=== PATIENT | female | born 1970 | race Caucasian/White ===

== ENCOUNTER 2017-11-16 06:02 | Day surgery (SDC) | payer OTHER, SELFPAY ==
[2017-11-05 15:57] LABS: Hemoglobin 12.9 g/dl (12.0-15.0); Mean Corp Hgb Conc 33.1 g/gl (32-36); Mean Corpuscular Hgb 29.9 pg (27.0-32.0); Mean Corpuscular Volume 90.3 fL (81-99); Mean Platelet Vol. 9.6 fl (6.2-12.0); Platelet Count 342 K/mm3 (150-450); RBC Distribution Width CV 12.9 % (11.6-14.6); RBC Distribution Width SD 42.1 fl (35.1-43.9); Red Blood Count 4.32 M/mm3 (4.2-5.4); White Blood Count 9.7 K/mm3 (4.4-11.0)
[2017-11-05 16:00] LABS: Scan Indicated on CBC? Y/N NO
[2017-11-05 16:43] LABS: International Normalized Ratio 0.9; Prothrombin Time (Protime)PT. 11.8 SECONDS (11.7-14.9)
[2017-11-05 16:44] LABS: Partial Thromboplast Time 28.7 Seconds (24.1-36.2)
--- NOTE | 2017-11-15 12:35 | PCM.HP.BLA ---
History and Physical Date of Admission: 11/16/17 Surgical History and Physical Lali Holloway, a 47 year old female 2 0 0 0 2, presents for Hysteroscopy, dilation and curettage on November 16, 2017 at 10:00. -- Irregular Heavy Menses after Endometrial Ablation -- Patient states that she has been having incereased bleeding over the past several months. Patient states that she has had 3 menses since July. Patient states that she is newly dx diabetic over the past year as well she is able to control with Diet and use of Metformin. She has had 3 periods since July last up to 1 week each with heavy flow and only 2 weeks between each. Declines more definitive treatment at this time such as a hysterectomy. MEDICATIONS HISTORY: Patient is also takin. Multiple Vitamin, Womens tablet, One pill by mouth once a day 2. Inderal LA 120 mg capsule,extended release 24 hr, 1 Tab po daily 3. Cymbalta 30 mg capsule,delayed release, One pill by mouth once a day 4. metformin 1,000 mg tablet, 1 PO BID ALLERGIES: Penicillin, Demerol, N,hallucinations, Codeine, Hallucinations, Codeine, Hallucinations, Demerol, Hallucinations, Penicillins and Severe nausea & vomiting Infections - Chicken pox Illnesses - ?collitis, 2009, migraines and joint pain Accidents - no injuries of consequence Hospitalizations - Childbirth and see surgery colonoscopy 05-24-08 for rectal bleeding; Review of Systems: GENERAL - Denies fever, or chills SKIN - Denies skin changes EYES - Denies visual changes EARS - Denies difficulty hearing NOSE - Denies nasal congestion or bleeding MOUTH - Denies sore throat or difficulty swallowing NECK - Denies pain or swelling RESPIRATORY - Denies shortness of breath or wheezing CARDIOVASCULAR - Denies palpitations or chest pain GASTROINTESTINAL - Denies nausea, vomiting, diarrhea, constipation GENITOURINARY - Denies dysuria, frequency of urination, incontinence of urine MUSCULOSKELETAL - Denies joint or muscle pain NEUROLOGICAL - Denies localized numbness or weakness PSYCHIATRIC - Denies depression or anxiety ENDOCRINE - Denies heat or cold intolerance, weight loss or gain HEMATO-IMMUNOLOGIC - Denies excesive bleeding with cuts SOCIAL HISTORY: Alcohol Use - denies drinking Smoking - denies smoking Diet - low carb low sugar Lifestyle - moderate stress lifestyle and Exercise - minimal Seat Belt Use - always 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 Maternal Grandmother: Heart Disease. Paternal Grandmother: Breast cancer. MENSTRUAL HISTORY: LMP Known?- ApproximateAmount/Duration - 5 days, Regularity - irregular, Frequency - monthly days, LMP - 10/19/17, Age Onset Menarche - 13 PAST PREGNANCIES: Total Pregnancies - 2; Full Term Pregnancies - 2; Premature - 0; Abortions, Induced - 0; Abortions, Spontaneous - 0; Ectopics - 0; Multiple Births - 0; Living Children - 2 SURGICAL HISTORY: 1. knee,rebrake femur w/graft (blood tx), femur pin, appy ; - 2. 07/04/2005 Moles removed ; Dr Gottlieb - 3. 04/04/2005 cholecystectomy ; Rogelio Gardiner - 4. 03/26/2000 Appendectomy ; Rogelio Gardiner - 5. Melanoma removed from back 02/01 ; - 6. 01/24/2004 2 moles removed ; Dr Gottlieb - 7. 08/06/2003 HTA, TUBAL ; Trever Cheatham M.D. - 8. 05/24/2008 colonoscopy for rectal bleeding ; Rogelio Gardiner - 9. Multiple Breast Biopsies x 3 months ; - 10. 02/08/2013 TVTO ; Trever Cheatham M.D. - PHYSICAL EXAM BP- 122/74 Sitting, Right arm, regular cuff Weight- 198.94501 lbs Height- 68 inch BMI:30.17 CONSTITUTIONAL - NAD, well nourished, and well developed SKIN - No rash, lesions, or ulcers HEENT - Normocephalic, PERRLA, EOMI NECK - No nodes, no nuchal rigidity and thyroid normal size and texture LYMPH NODES - Palpation of lymph nodes in neck and groins within normal limits LUNGS - CTA x2 without wheezes, crackles or rales CARDIAC - Regular rate and rhythm without rubs, murmurs, or gallops BREAST - No dominant masses, no tenderness, no axillary adenopathy, no nipple discharge, no skin changes ABDOMEN - Without hepatosplenomegaly, distention, masses, rebound, or guarding; normal bowel sounds; no hernias EXTREMITIES - No edema or calf tenderness NEUROLOGICAL - normal gait, normal balance, normal motor PSYCHIATRIC - A and O to time, place, person, mood and affect PAP SMEAR - Deferred External Genitial Vagina - non-tender without lesions Urethra/Urethral Meatus - non-tender Bladder - non-tender Vagina - vaginal walter are pink and moist without loss of rugae and no evidence of atropy Cervix - without cervical motion tenderness and has normal size and features without evident lesions Uterus - 5-6 cm in size, mobile and nontender Adnexa - clear without massess or tenderness ASSESSMENT/PLAN: Excessive And Frequent Menstruation With Irregular Cycle h/o endometrial ablation Reviewed need to r/o endometrial hyperplasia vs. malignancy, dfdx perimenopausal bleeding Recommend endometrial sampling - office bx attempted not successful Plan for hysteroscopy, dilation and curettage in OR - risks, benefits, postop course reviewed.
--- NOTE | 2017-11-16 | EMB_PTH ---
PATIENT: KULWANT GOMEZ LOC: [facility] [place] U#:[id number] AGE/SX: 47/F ROOM: RE11/16/[address]: Dr. Trever Cheatham MD : 1970 BED: DIS: 11/16/2017 SPEC #: [id number] RECD: 11/16/17 10:02 STATUS: NAVEED KASIA #: [id number] NICK: 11/16/17 00:[address]: Trever Cheatham DEPT: SURGICAL PATHOLOGY RECD BY: Luis M Tabares ENTERED: 11/16/17 10:02 SP TYPE: ENDOM BX/C FREYA DR: Dr. Nancy Pérez MD Tissues: Endometrium, NOS Procedures: Surgery Specimen Level IV HEADER OPERATION: Hysteroscopy, dilation and curettage PRE-OP DIAGNOSIS: Excessive and frequent menstruation TISSUE SUBMITTED: Endometrial curettings MICROSCOPIC DIAGNOSIS Endometrial curettings: Late secretory endometrium. Fragments of benign endocervical mucosa with chronic inflammation. SJ:nicole 11/17/17 MICROSCOPIC DESCRIPTION Slides are reviewed. GROSS DESCRIPTION Received in fixative is one container labeled with the patient's name and designated endometrial curettings. The specimen consists of multiple fragments of hemorrhagic soft tissue mixed with blood clot that in aggregate measure 7.5 x 3 x 0.3 cm. The entire specimen is submitted in three cassettes. / OPAL:nicole 11/16/17 TC:4 CPT: 18917
[2017-11-16 06:30] LABS: Internal QC Validated? YES +Cl - CLEAR BKGD; Pregnancy, Urine Negative Negative
[2017-11-16 06:45] VITALS: BP 113/67; PULSE 68; RESP 16; TEMP 36.4; O2SAT 98; BMI 29.9
[2017-11-16 06:56] LABS: Bedside Glucose 142 mg/dL (70-110)
--- NOTE | 2017-11-16 07:30 | OP.PCM_ITS ---
Operative Report Date of Procedure: 11/16/17 Surgeon: Trever Cheatham MD, FACOG Anesthesia: Quoc Cano CRNA Type of Anesthesia: General Endotracheal Pre-Op Diagnosis: Menorrhagia Status Post Endometrial Ablation Postoperative diagnosis: Menorrhagia Status Post Endometrial Ablation; Submucous Fibroids Procedure: Diagnostic Hysteroscopy, Dilation and Curettage Findings: 8 cm endometrial cavity with no polyps visualized. [place] endometrium. Submucous fibroid noted near the fundus of the uterus with the endometrial curette. Cervix which protruded to within 2 cm of the introitus which would make laparoscopic-assisted vaginal hysterectomy technically feasible. Indications: This is a 47 year old patient who has the above diagnosis. The patient has been counseled regarding the risk and indications of this procedure including the possibility of bleeding, infection, and injury to surrounding structures such as bowel bladder. All questions were answered to reconsider the patient well-informed. Procedure: The patient was taken to the operating room where after induction of general anesthesia, she was placed in the dorsolithotomy position and prepped and draped in the usual sterile fashion. The bladder was drained of approximately 50 cc of clear yellow urine with a catheter. Anterior cervix was grasped with the tenaculum and dilated to about 4-5 mm. A 3 mm hysteroscope was placed in the uterus of the above findings were noted. Cervix was dilated to about 7-8 mm and uterus was gently curetted removing all contents. Hysteroscope was reinserted and all material was noted to be removed. In the course of the procedure approximately 100 cc of saline distending media was used and virtually all of this was recovered. Patient tolerated procedure well was taken to recovery room in satisfactory condition sponge instrument and needle counts were all reportedly correct. Estimated blood loss for the case was minimal. Specimens to pathology was endometrial curettings
--- NOTE | 2017-11-16 07:31 | DCINST_ITS ---
Discharge Diet: No Restrictions Discharge Activity: Return to Normal Activity, May Shower, May Take a Tub Bath Call your doctor if you observe: Fever of 101 or Higher, Inability to urinate, Inability to have a bowel movement, Using more than one pad per hour Allergies/Adverse Reactions: Allergies codeine Allergy (Verified 11/02/17 15:38) Other HALLUCINATIONS meperidine [From Demerol] Allergy (Verified 11/02/17 15:38) Other HALLUCINATIONS Penicillins [PCN] Allergy (Verified 11/02/17 15:38) Hives Medications to take at Discharge Complete Menopause Support Com 1 tab PO BID 11/02/17 Duloxetine HCl 20 mg PO DAILY 11/02/17 Metformin HCl [Metformin HCl ER] 1,000 mg PO BID 11/02/17 Propranolol HCl [Propranolol HCl ER] 80 mg PO DAILY 11/02/17 Primary Care Physician: Nancy Pérez MD [Primary Care Provider] - Test Results: Test results from this visit will be discussed in further detail at your follow- up appointment, if applicable. Please Follow Up With: Trever Cheatham MD When: 2-3 weeks
[2017-11-16 08:03] VITALS: BP 113/67; BP 119/64; PULSE 77; RESP 14; TEMP 37.4; O2SAT 93
[2017-11-16 08:15] VITALS: BP 101/66; BP 113/67; PULSE 81; RESP 14; O2SAT 94
[2017-11-16 08:30] VITALS: BP 106/70; BP 113/67; PULSE 74; RESP 16; O2SAT 95
[2017-11-16 08:43] VITALS: BP 104/61; BP 113/67; PULSE 68; RESP 18; TEMP 37; O2SAT 99
[2017-11-16 08:50] LABS: Bedside Glucose 120 mg/dL (70-110)
[2017-11-16 09:07] VITALS: BP 113/67
== END 2017-11-16 09:08 | disposition home or self-care (01) ==
LOC: SDC 06:06 → AC 06:06
PROVIDERS: Visit Provider Obstetrics & Gynecology
PROC: 0UDB8ZZ Extraction of Endometrium, Via Natural or Artificial Opening Endoscopic (ICD-10-PCS; CPT 58558; principal; 2017-11-16 07:20)
DX: N92.0 Excessive and frequent menstruation with regular cycle (principal); D25.0 Submucous leiomyoma of uterus; Z85.820 Personal history of malignant melanoma of skin
CPT/HCPCS: 00952; 58558; 36415; 81025; 82962; 85027; 85610; 85730; 86850; 86900; 88305; J7120

== ENCOUNTER 2018-06-28 07:35 | Day surgery (SDC) | payer OTHER, SELFPAY ==
--- NOTE | 2018-06-20 12:14 | PCM.HP.BLA ---
History and Physical Date of Admission: 06/28/18 Surgical History and Physical Lali Holloway, a 48 year old female 2 0 0 0 2, presents for LAVH/BSO on June 28, 2018 at 10:15. -- Menorrhagia, Submucous Fibroids, Prior HTA -- Started 1 year ago with this Irregular Bleeding and she is tired of it. 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 D and C last and Ablation in 2003. Bleeding Continues which began 1 year. Lali claims it started gradually and has been present Bleeding q 2-3 weeks. It occurs all the time. It is located in the vagina. It is located in the lower abdomen. Lali characterizes the quality dark brownish colored discharge, cramping. Severity is moderate and very concerned; Additional comments are: Wants Hysterectomy.; Additional comments are: known submucous fiboids. MEDICATIONS HISTORY: Current medications prescribed by our practice are: 1. Prometrium 200 mg capsule, One pill by mouth once a day at hs for 10 days monthly to start cycle Patient is also takin. Multiple Vitamin, Womens tablet, One pill by mouth once a day 2. Inderal LA 120 mg capsule,extended release 24 hr, 1 Tab po daily 3. Cymbalta 30 mg capsule,delayed release, One pill by mouth once a day 4. metformin 1,000 mg tablet, 1 PO BID ALLERGIES: Penicillin, Demerol, N,hallucinations, Codeine, Hallucinations, Codeine, Hallucinations, Demerol, Hallucinations, Penicillins and Severe nausea & vomiting Infections - Chicken pox Illnesses - ?collitis, 2009, migraines and joint pain Accidents - no injuries of consequence Hospitalizations - Childbirth and see surgery colonoscopy 05-24-08 for rectal bleeding; Review of Systems: GENERAL - Denies fever, or chills SKIN - Denies skin changes EYES - Denies visual changes EARS - Denies difficulty hearing NOSE - Denies nasal congestion or bleeding MOUTH - Denies sore throat or difficulty swallowing NECK - Denies pain or swelling RESPIRATORY - Denies shortness of breath or wheezing CARDIOVASCULAR - Denies palpitations or chest pain GASTROINTESTINAL - Denies nausea, vomiting, diarrhea, constipation GENITOURINARY - Denies dysuria, frequency of urination, incontinence of urine MUSCULOSKELETAL - Denies joint or muscle pain NEUROLOGICAL - Denies localized numbness or weakness PSYCHIATRIC - Denies depression or anxiety ENDOCRINE - Denies heat or cold intolerance, weight loss or gain HEMATO-IMMUNOLOGIC - Denies excessive bleeding with cuts SOCIAL HISTORY: Alcohol Use - denies drinking Smoking - denies smoking Diet - low carb low sugar Lifestyle - moderate stress lifestyle and Exercise - minimal Seat Belt Use - always 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 Maternal Grandmother: Heart Disease. Paternal Grandmother: Breast cancer. MENSTRUAL HISTORY: LMP Known?- Suction D and [place]/Duration - 6 days, Regularity - irregular, Frequency - monthly days, LMP - 04/27/18, Age Onset Menarche - 13 PAST PREGNANCIES: Total Pregnancies - 2; Full Term Pregnancies - 2; Premature - 0; Abortions, Induced - 0; Abortions, Spontaneous - 0; Ectopics - 0; Multiple Births - 0; Living Children - 2 SURGICAL HISTORY: 1. knee,rebroke femur w/graft (blood tx), femur pin, appy ; - 2. 07/04/2005 Moles removed ; Dr Gottlieb - 3. 04/04/2005 cholecystectomy ; Rogelio Gardiner - 4. 03/26/2000 Appendectomy ; Rogelio Gardiner - 5. Melanoma removed from back 02/01 ; - 6. 01/24/2004 2 moles removed ; Dr Gottlieb - 7. 08/06/2003 HTA, TUBAL ; Trever Cheatham M.D. - 8. 11/16/2017 hysteroscopy, D and C ; Trever Cheatham M.D. - 9. 05/24/2008 colonoscopy for rectal bleeding ; Rogelio Gardiner - 10. Multiple Breast Biopsies x 3 months ; - 11. 02/08/2013 TVTO ; Trever Cheatham M.D. - PHYSICAL EXAM BP- 114/76 Sitting, Right arm, regular cuff Weight- 201.43468 lbs Height- 68 inch BMI:30.63 CONSTITUTIONAL - NAD, well nourished, and well developed SKIN - No rash, lesions, or ulcers HEENT - Normocephalic, PERRLA, EOMI NECK - No nodes, no nuchal rigidity and thyroid normal size and texture LYMPH NODES - Palpation of lymph nodes in neck and groins within normal limits LUNGS - CTA x2 without wheezes, crackles or rales CARDIAC - Regular rate and rhythm without rubs, murmurs, or gallops BREAST - No dominant masses, no tenderness, no axillary adenopathy, no nipple discharge, no skin changes ABDOMEN - Without hepatosplenomegaly, distention, masses, rebound, or guarding; normal bowel sounds; no hernias EXTREMITIES - No edema or calf tenderness NEUROLOGICAL - normal gait, normal balance, normal motor PSYCHIATRIC - A and O to time, place, person, mood and affect PAP SMEAR - Deferred External Genital Vagina - non-tender without lesions Urethra/Urethral Meatus - non-tender Bladder - non-tender Vagina - vaginal walter are pink and moist without loss of rugae and no evidence of atropy Cervix - without cervical motion tenderness and has normal size and features without evident lesions Uterus - 5-6 cm in size, mobile and nontender Adnexa - clear without masses or tenderness ASSESSMENT/PLAN: 1. Excessive And Frequent Menstruation With Irregular Cycle and Submucous Leiomyoma Of Uterus Still bleeding heavily despite prior HTA, D and C, Progesterone withdrawal therapy. Desires to proceed with hysterectomy. Plan LAVH/BSO. Discussed RBAs and all questions answered.
[2018-06-23 16:49] LABS: Hematocrit 37.9 % (37-47); Hemoglobin 12.5 g/dl (12.0-15.0); Mean Corpuscular Hgb 29.5 pg (27.0-32.0); Mean Corpuscular Volume 89.4 fL (81-99); Mean Platelet Vol. 10.1 fl (6.2-12.0); Platelet Count 296 K/mm3 (150-450); RBC Distribution Width SD 41.8 fl (35.1-43.9); Red Blood Count 4.24 M/mm3 (4.2-5.4); White Blood Count 10.6 K/mm3 (4.4-11.0)
[2018-06-23 16:51] LABS: Scan Indicated on CBC? Y/N NO
[2018-06-23 16:53] LABS: Prothrombin Time (Protime)PT. 13.2 SECONDS (11.7-14.9)
[2018-06-23 16:54] LABS: Creatinine, Serum 0.72 mg/dL (0.55-1.02); EST Glomerular Filtration Rate 92 mL/min (>60); Est Glom Filt Rate - Afr Amer 111 mL/min (>60)
[2018-06-28] VITALS (13 sets, daily range): BP systolic 104–123; BP diastolic 50–82; PULSE 62–101; RESP 16–18; TEMP 36.5–37.1; O2SAT 92–100; BMI 30.9
[2018-06-28 08:26] LABS: Bedside Glucose 151 mg/dL (70-110)
--- NOTE | 2018-06-28 09:30 | HYST_PTH ---
PATIENT: KULWANT GOMEZ LOC: [facility] [place] U#:[id number] AGE/SX: 48/F ROOM: RE06/28/[address]: Dr. Trever Cheatham MD : 1970 BED: DIS: 06/29/2018 SPEC #: [id number] RECD: 06/28/18 13:11 STATUS: NAVEED KASIA #: [id number] NICK: 06/28/18 09:[address]: Trever Cheatham DEPT: SURGICAL PATHOLOGY RECD BY: Mario Berman ENTERED: 06/28/18 13:27 SP TYPE: HYSTERECT OTHR DR: Dr. Nancy Pérez MD Tissues: Uterus, NOS Procedures: Surgery Specimen Level V HEADER OPERATION: Hysterectomy, lap assisted vaginal, BSO PRE-OP DIAGNOSIS: Excessive and frequent menstruation with irregular cycle and submucous leiomyoma of uterus TISSUE SUBMITTED: Uterus, bilateral fallopian tubes and ovaries MICROSCOPIC DIAGNOSIS Uterus, bilateral fallopian tubes and ovaries, vaginal hysterectomy and bilateral salpingo-oophorectomy: Cervix - chronic cystic cervicitis. Endometrium - early secretory endometrium. Myometrium - two intramural leiomyomas (0.3 and 0.5 cm in greatest dimension). - Focal adenomyosis. Bilateral fallopian tubes - no pathologic diagnosis. Right ovary - physiologic follicular and corpus luteum cysts. Left ovary - physiologic follicular cysts. SJ:nicole 06/29/18 COMMENT Please make reference to previous specimen ([id number]) endometrial curettings with diagnosis of late secretory endometrium. MICROSCOPIC DESCRIPTION Slides are reviewed. GROSS DESCRIPTION Received in fixative is one container labeled with the patient's name and designated uterus, bilateral fallopian tubes and ovaries. The specimen consists of a hysterectomy specimen consisting of uterus with cervix and attached right ovary and detached right fallopian tube and detached left fallopian tube and left ovary. The uterus with cervix weighs 143 gm and measures 11 x 6 x 4.5 cm. The serosal surface is gomez, glistening. The ectocervical mucosa is unremarkable. The external os is oval and patulous in contour. The endocervical canal measures 3 cm in length and the endocervical mucosa is unremarkable. The endometrial cavity is narrow and measures 5 cm in length and 0.5 cm in width. The endometrium measures <0.1 cm in thickness. No mass lesion is identified. Serial sectioning of the uterine wall reveal two nodular masses measuring 0.3 and 0.5 cm in greatest dimension. The uninvolved uterine wall measures up to 3 cm in thickness. The detached right fallopian tube measures 4.5 cm in length and 0.5 cm in diameter. The fimbrial end is identified. It is partially disrupted. The attached right ovary measures 3 x 2.5 x 1.5 cm. Sections reveal a corpus luteum measuring 1.5 cm in greatest dimension. A few small cysts are also noted measuring 0.2 to 0.3 cm in greatest dimension filled with clear fluid. The left fallopian tube measures 8 cm in length and 0.5 cm in diameter. The fimbrial end is identified. A Filshie clip is also noted in the center and appears intact. No tubo-ovarian adhesions are noted. Sections reveal unremarkable cut surfaces. The adjacent left ovary measures 2.5 x 2 x 2 cm. Sections reveal multiple cysts filled with clear fluid. The largest cyst measures 0.5 cm in greatest dimension. Management Analyst sections are submitted in 11 cassettes as follows: 1 - anterior cervix, 2 - posterior cervix, 3 & 4 - anterior uterine wall, 5 & 6 - posterior uterine wall, 7 - nodular masses, 8 - right fallopian tube and ovary, 9 - right ovary, 10 - left fallopian tube, 11 - left ovary. / SJ:nicole 06/28/18 TC:5 CPT: 07105
[2018-06-28] MEDS: Ropivacaine 0.5% 30 ML Vial (11:49)
--- NOTE | 2018-06-28 12:00 | PCM.OPRPT ---
Report of Operation Date of Procedure: 06/28/18 Pre-Operative Diagnosis: Menorrhagia and Submucous Fibroids Post-Operative Diagnosis: Menorrhagia and Submucous Fibroids Surgery/Procedure Performed:: Laparoscopic Assisted Vaginal Hysterectomy and Bilateral Salpingo-Oophorectomy Description of Surgical Findings:: 10 cm uterus with normal-appearing fallopian tubes and ovaries. Some adhesions of the left fallopian tube to left pelvic sidewall. water quality specialist: Souleymane Hughes water quality specialist: Niya Kemp Type of Anesthesia:: General - Endotracheal Anesthesiologist: Loli Torres Specimen's removed: Uterus, bilateral fallopian tubes and ovaries Drains: Grossman to straight drain Estimated Blood Loss (mL): 450 cc Fluids Replaced: Crystalloid Description of Procedure: Surgeon: Trever Cheatham MD, FACOG Indications: This is a 48-year-old who is been having problems with extremely heavy bleeding and was noted in ultrasound to have submucous fibroids. Conservative measures have not been helpful. Given this the patient desires that we proceed the above procedure. She has been counseled regarding the risk and indications of this procedure including the possibility of bleeding, infection, and injury to surrounding structures such as bowel bladder. She also understands that if both ovaries are removed that it may be necessary to use hormone replacement therapy for an indefinite period of time. All questions were answered. Procedure: Patient was taken to the operating room where after induction of general anesthesia she was placed in the dorsal lithotomy position and prepped and draped in the usual sterile fashion. A Grossman catheter was placed. Anterior cervix was grasped with a tenaculum and anterior cervix circumscribed with cautery on a setting of 35 W coagulation. Anterior vaginal mucosa was undermined and a 4 x 4 raytec sponge was placed to identify the peritoneal reflection of the bladder intraperitoneally. Conn cannula was placed and attention was turned towards the laparoscopic portion of the procedure. Approximately 20 cc of half percent ropivacaine was injected subumbilically, suprapubically, and midway between. A 5 mm bladeless trocar was introduced subumbilically and intraperitoneal placement confirmed. CO2 insufflation was completed and, under direct visualization, a 5 mm bladeless trocar was introduced suprapubically. A 5 mm bladeless trocar was introduced midway between these 2 ports. Enseal was used to cauterize the infundibulopelvic ligaments to the level of the round ligament and the Raytec placed in the vagina was visualized. Scissors was used to open the peritoneum and under direct visualization a narrow Keith was placed vaginally; CO2 gas was stopped and attention turned toward the vaginal hysterectomy portion of the procedure. The posterior aspect of the cervix was circumscribed with a knife and posterior peritoneum easily entered. Progressive bites were taken on either side of the uterine cervix and each pedicle ligated with 0 Vicryl suture. Superior pedicles were ligated ?2 with 0 Vicryl suture and sidewall pedicles were examined and oversewn where necessary with [id number] 0 Vicryl suture to achieve hemostasis. Posterior vaginal cuff was oversewn with running locked 0 Vicryl suture. Hemostasis was noted and peritoneum was closed in a pursestring fashion incorporating superior pedicles into the stitch. Vaginal cuff was then closed front to back with interrupted [id number] 0 Vicryl suture. Hemostasis was noted. Attention was turned toward the laparoscopic portion of the procedure. CO2 insufflation was completed and pedicles were examined with the laparoscope and noted to be hemostatic. Right ureter was noted to peristalse. Laparoscopic instruments with as much CO2 gas as possible was removed and skin incisions were closed with interrupted 4-0 Monocryl suture. Steri-Strips were placed across the incisions. Patient tolerated the procedure well was taken to recovery room in satisfactory condition; sponge instrument and needle counts were all reportedly correct. Estimated blood loss for the case was 450 cc. Cefotan 2 g IV was given prior to beginning the operative procedure. There were no apparent complications of the surgery. Specimen to pathology was uterus and bilateral fallopian tubes and ovaries. Grafts/Implants Used: None - Complications None - Admit VTE Documentation VTE Present on Admission: Yes VTE Mechan Device Prophylaxis: [facility] VTE Pharm Prophylaxis ordered?: Yes
--- NOTE | 2018-06-28 12:06 | OP.PCM_ITS ---
Report of Operation Date of Procedure: 06/28/18 Pre-Operative Diagnosis: Menorrhagia and Submucous Fibroids Post-Operative Diagnosis: Menorrhagia and Submucous Fibroids Surgery/Procedure Performed:: Laparoscopic Assisted Vaginal Hysterectomy and Bilateral Salpingo-Oophorectomy Description of Surgical Findings:: 10 cm uterus with normal-appearing fallopian tubes and ovaries. Some adhesions of the left fallopian tube to left pelvic sidewall. head stock operator: Souleymane Hughes head stock operator: Niya Kemp Type of Anesthesia:: General - Endotracheal Anesthesiologist: Loli Torres Specimen's removed: Uterus, bilateral fallopian tubes and ovaries Drains: Grossman to straight drain Estimated Blood Loss (mL): 450 cc Fluids Replaced: Crystalloid Description of Procedure: Surgeon: Trever Cheatham MD, FACOG Indications: This is a 48-year-old who is been having problems with extremely heavy bleeding and was noted in ultrasound to have submucous fibroids. Conservative measures have not been helpful. Given this the patient desires that we proceed the above procedure. She has been counseled regarding the risk and indications of this procedure including the possibility of bleeding, infection, and injury to surrounding structures such as bowel bladder. She also understands that if both ovaries are removed that it may be necessary to use hormone replacement therapy for an indefinite period of time. All questions we re answered. Procedure: Patient was taken to the operating room where after induction of general anesthesia she was placed in the dorsal lithotomy position and prepped and draped in the usual sterile fashion. A Grossman catheter was placed. Anterior cervix was grasped with a tenaculum and anterior cervix circumscribed with cautery on a setting of 35 W coagulation. Anterior vaginal mucosa was unde rmined and a 4 x 4 raytec sponge was placed to identify the peritoneal reflection of the bladder intraperitoneally. Conn cannula was placed and attention was turned towards the laparoscopic portion of the procedure. Approximately 20 cc of half percent ropivacaine was injected subumbilically, suprapubically, and midway between. A 5 mm bladeless trocar was introduced subumbilically and intraperitoneal placement confirmed. CO2 insufflation was completed and, under direct visualization, a 5 mm bladeless trocar was introduced suprapubically. A 5 mm bladeless trocar was introduced midway betwe en these 2 ports. Enseal was used to cauterize the infundibulopelvic ligaments to the level of the round ligament and the Raytec placed in the vagina was visualized. Scissors was used to open the peritoneum and under direct visualization a narrow Keith was placed vaginally; CO2 gas was stopped and attention turned toward the vaginal hysterectomy portion of the procedure. The posterior aspect of the cervix was circumscribed with a knife and posterior peritoneum easily entered. Progressive bites were taken on either side of the uterine cervix and each pedicle ligated with 0 Vicryl suture. Superior pedicles were ligated ?2 with 0 Vicryl suture and sidewall pedicles were examined and oversewn where necessary with [id number] 0 Vicryl suture to achieve hemostasis. Posterior vaginal cuff was oversewn with running locked 0 Vicryl suture. Hemostasis was noted and peritoneum was closed in a pursestring fashion incorporating superior pedicles into the stitch. Vaginal cuff was then closed front to back with interrupted [id number] 0 Vicryl suture. Hemostasis was noted. Attention was turned toward the laparoscopic portion of the procedure. CO2 insufflation was completed and pedicles were examined with the laparoscope and noted to be hemostatic. Right ureter was noted to peristalse. Laparoscopic instruments with as much CO2 gas as possible was removed and skin incisions were closed with interrupted 4-0 Monocryl suture. Steri-Strips were placed across the incisions. Patient tolerated the procedure well was taken to recovery room in satisfactory condition; sponge instrument and needle counts were all reportedly correct. Estimated blood loss for the case was 450 cc. Cefotan 2 g IV was given prior to beginning the operative procedure. There were no apparent complications of the surgery. Specimen to pathology was uterus and bilateral fallopian tubes and ovaries. Grafts/Implants Used: None - Complications None - Admit VTE Documentation VTE Present on Admission: Yes VTE Mechan Device Prophylaxis: SCD's VTE Pharm Prophylaxis ordered?: Yes
--- NOTE | 2018-06-28 12:09 | DCINST_ITS ---
Discharge Diet: No Restrictions Discharge Activity: Return to Normal Activity, May Not Drive - while taking narcotic pain medications., May Shower, May Take a Tub Bath May resume sexual activity in: 6-8 weeks Call your doctor if your incision/area has: Continuous Slow Oozing, Sudden Inc reased Bleeding, Increased Pain/ Swelling, Increased Redness, Foul Smelling Discharge Call your doctor if you observe: Fever of 101 or Higher, Inability to urinate, Inability to have a bowel movement, Using more than one pad per hour Allergies/Adverse Reactions: Allergies codeine Allergy (Verified 06/28/18 08:03) Other HALLUCINATIONS meperidine [From Demerol] Allergy (Verified 06/28/18 08:03) Other HALLUCINATIONS Penicillins [PCN] Allergy (Verified 06/28/18 08:03) Hives Medications to take at Discharge Duloxetine HCl 20 mg PO QHS 11/02/17 Metformin HCl [Metformin HCl ER] 1,000 mg PO BID 11/02/17 Propranolol HCl [Propranolol HCl ER] 80 mg PO QHS 11/02/17 Atorvastatin Calcium [Lipitor] 10 mg PO QHS 06/21/18 Docusate Sodium [Colace] 100 mg PO BID PRN PRN #60 cap 06/28/18 Estradiol [Estrace] 1 mg PO DAILY #100 tab 06/28/18 Oxycodone [Oxyir] 5 mg PO Q6H PRN PRN 7 Days #20 tab 06/28/18 The following prescriptions were given: Oxycodone [Oxyir] 5 mg PO Q6H PRN PRN 7 Days #20 tab PRN Reason: Severe Pain (6-12/02) Docusate Sodium [Colace] 100 mg PO BID PRN PRN #60 cap PRN Reason: Constipation Estradiol [Estrace] 1 mg PO DAILY #100 tab Orders to be completed after discharge: Basic Metabolic Profile (BMP) Time Frame: 06/21/18, Location: Laboratory Primary Care Physician: Nancy Pérez MD [Primary Care Provider] - Test Results: Test results from this visit will be discussed in further detail at your follow- up appointment, if applicable. Please Follow Up With: Trever Cheatham MD When: 2 to 3 weeks
[2018-06-28 12:20] LABS: Bedside Glucose 152 mg/dL (70-110)
[2018-06-28] MEDS: oxyCODONE 5 MG Tablet PO ×2 (13:11→20:47)
[2018-06-28] MEDS: HYDROmorphone 1 MG/ML Syringe 0.5 MG IV (14:25)
[2018-06-28] MEDS: Lactated Ringers 1,000 ML 150 ML IV ×2 (14:30→20:48)
[2018-06-28] MEDS: Ketorolac 30 MG/ML Syringe IV ×2 (18:09→23:10)
[2018-06-28] MEDS: Enoxaparin 30 MG/0.3 ML Syringe SC (18:19)
[2018-06-28] MEDS: DULoxetine Hcl 20 MG Capsule PO (21:19)
[2018-06-28] MEDS: Atorvastatin Calcium 10 MG Tablet PO (21:19)
[2018-06-28] MEDS: Propranolol LA 80 MG Capsule PO (21:19)
[2018-06-28 21:21] LABS: Bedside Glucose 170 mg/dL (70-110)
[2018-06-29] MEDS: oxyCODONE 5 MG Tablet PO ×2 (03:07→09:06)
[2018-06-29 03:13] VITALS: BP 101/58; PULSE 84; RESP 17; TEMP 36.4; O2SAT 95
[2018-06-29] MEDS: Ketorolac 30 MG/ML Syringe IV (05:01)
[2018-06-29 05:27] LABS: Hematocrit 31.7 % (37-47); Hemoglobin 10.3 g/dl (12.0-15.0); Mean Corp Hgb Conc 32.5 g/gl (32-36); Mean Corpuscular Hgb 29.1 pg (27.0-32.0); Mean Corpuscular Volume 89.5 fL (81-99); Mean Platelet Vol. 9.7 fl (6.2-12.0); Platelet Count 303 K/mm3 (150-450); RBC Distribution Width CV 12.7 % (11.6-14.6); Red Blood Count 3.54 M/mm3 (4.2-5.4); White Blood Count 11.5 K/mm3 (4.4-11.0)
[2018-06-29 05:31] LABS: Scan Indicated on CBC? Y/N NO
[2018-06-29 05:53] LABS: Creatinine, Serum 0.72 mg/dL (0.55-1.02); EST Glomerular Filtration Rate 91 mL/min (>60); Est Glom Filt Rate - Afr Amer 110 mL/min (>60); Estimated Creatinine Clearance 95.34 ml/min
[2018-06-29 07:00] LABS: Bedside Glucose 130 mg/dL (70-110)
[2018-06-29 07:31] VITALS: O2SAT 94
--- NOTE | 2018-06-29 08:46 | PCM.PN.OB ---
Subjective: Patient without complaints. Tolerating diet well. Minimal vaginal bleeding. Pain well controlled. - Physical Exam Vital Signs Temp Pulse Resp BP Pulse Ox 97.6 F L 84 17 101/58 L 95 06/29/18 03:13 06/29/18 03:13 06/29/18 03:13 06/29/18 03:13 06/29/18 03:13 Oxygen Flow Rate (L/min) 1 Oxygen Delivery Method Room Air Weight: 203 lb Body Mass Index (BMI) 30.9 Finger Stick Blood Glucose 152 Intake and Output for Last 24 Hours 06/27/18 06/28/18 06/29/18 23:59 23:59 23:59 Intake Total 3784 / 3784 971 / 971 Output Total 1900 / 1900 550 / 550 Balance 1884 / 1884 421 / 421 Laboratory Tests Past 24 Hrs 06/29/18 06/29/18 04:58 04:58 WBC 11.5 H RBC 3.54 L Hgb 10.3 L Hct 31.7 L MCV 89.5 MCH 29.1 MCHC 32.5 RDW 12.7 RDW Differential 40.0 Plt Count 303 MPV 9.7 Creatinine 0.72 Estim Creat Clear Calc 95.34 Est GFR (MDRD) Af Amer 110 Est GFR (MDRD) Non-Af 91 POC Glucose 06/29/18 06/28/18 06/28/18 06:40 20:44 12:16 POC Glucose 130 H 170 H 152 H Wounds are clean, dry, intact. Good urine output. Hemoglobin and creatinine okay. Medical Necessity - Tobacco Use Smoking Status: Never smoker Assessment/Plan Doing well postoperative day #1 status post LAVH/BSO. Will release to home with routine instructions.
[2018-06-29 08:53] VITALS: BP 99/62; PULSE 79; RESP 16; TEMP 37; O2SAT 100
[2018-06-29] MEDS: Estrogens,Conj. 0.625 MG Tablet PO (09:04)
--- NOTE | 2018-06-29 10:35 | NURSING ---
Addendum entered by Loli Leblanc 06/29/18 11:28: Discussed discharge instructions and gave patient a copy. On d/c instructions, this RN wrote last time each medication was given, including Toradol, Tylenol and oxyir. Pt and her mother verbalized understanding- denied further questions or needs. Original Note: Pt tolerated breakfast and went on a walk around unit- tolerated well. Pt rates pain 3/10 and denies need for further pain meds. Pt able to urinate 300cc- clear thiago urine- without difficulty. discharged per order at this time.
== END 2018-06-29 10:35 | disposition home or self-care (01) ==
LOC: SDC 07:36 → AC 07:38 → MS3 09:40
PROVIDERS: Referring Provider Obstetrics & Gynecology; Visit Provider Obstetrics & Gynecology
PROC: 0UT9FZZ Resection of Uterus, Via Natural or Artificial Opening With Percutaneous Endoscopic Assistance (ICD-10-PCS; CPT 58552; principal; 2018-06-28 09:05)
DX: N72 Inflammatory disease of cervix uteri (principal); N83.11 Corpus luteum cyst of right ovary; N83.02 Follicular cyst of left ovary; N92.0 Excessive and frequent menstruation with regular cycle; D25.0 Submucous leiomyoma of uterus; N80.0 Endometriosis of uterus
CPT/HCPCS: 58552; 36415; 82565; 82962; 85027; 85610; 85730; 86850; 86900; 88307; J7120; C1760; J2405

== ENCOUNTER → 2020-10-23 15:28 | Outpatient (CLI) | payer OTHER, SELFPAY ==
[2020-10-23 17:00] LABS: Vitamin D,25 Hydroxy 31.1 ng/mL
[2020-10-23 17:10] LABS: ALB/GLOB Ratio 1.1 RATIO (0.9-2.4); AST(SGOT) 22 U/L (15-37); Alanine Aminotransfer ALT/SGPT 55 U/L (13-56); Albumin, Serum 4.2 g/dL (3.2-5.0); Alkaline Phosphatase 112 U/L (45-117); Anion Gap 7 (5-15); BUN 19 mg/dL (7-18); BUN/Creat Ratio 28.1 RATIO (10-20); Calcium,Total 9.4 mg/dL (8.5-10.1); Chloride 101 mmol/L (98-107); Cholesterol 212 mg/dL (200); Creatinine, Serum 0.68 mg/dL (0.55-1.02); EST Glomerular Filtration Rate 98 mL/min (>60); Est Glom Filt Rate - Afr Amer 118 mL/min (>60); Globulin 3.9 g/dL (2.2-4.2); Glucose 221 mg/dL (74-106); High Density Lipoprotein 35 mg/dL; Protein, Total 8.1 g/dL (6.4-8.2); Sodium Level 135 mmol/L (136-145); Thyroid Stim Hormone (TSH) 1.04 uIU/mL (0.358-3.74); Triglycerides 647 mg/dL
[2020-10-23 17:11] LABS: Microalbumin,Random Urine < 5.0 mg/L (NO RANGE EST.)
== END ==
PROVIDERS: PCP Family Medicine; Referring Provider Nurse Practitioner Family; Visit Provider Nurse Practitioner Family
DX: E55.9 Vitamin D deficiency, unspecified (principal); E11.9 Type 2 diabetes mellitus without complications
CPT/HCPCS: 36415; 80053; 80061; 82043; 82306; 82570; 84443

== ENCOUNTER 2021-05-02 15:47 | Outpatient (CLI) | payer OTHER, SELFPAY ==
[2021-05-02 18:03] LABS: Vitamin B12 369 pg/mL (211-911); Vitamin D,25 Hydroxy 21.1 ng/mL
[2021-05-02 18:14] LABS: ALB/GLOB Ratio 1.2 RATIO (0.9-2.4); AST(SGOT) 28 U/L (15-37); Alanine Aminotransfer ALT/SGPT 58 U/L (13-56); Albumin, Serum 4.4 g/dL (3.2-5.0); Alkaline Phosphatase 150 U/L (45-117); Anion Gap 8 (5-15); BUN 18 mg/dL (7-18); BUN/Creat Ratio 28.1 RATIO (10-20); Calcium,Total 9.5 mg/dL (8.5-10.1); Chloride 100 mmol/L (98-107); Cholesterol 207 mg/dL (200); Creatinine, Serum 0.64 mg/dL (0.55-1.02); EST Glomerular Filtration Rate 103 mL/min (>60); Est Glom Filt Rate - Afr Amer 125 mL/min (>60); Globulin 3.8 g/dL (2.2-4.2); Glucose 137 mg/dL (74-106); High Density Lipoprotein 44 mg/dL; Potassium 4.2 mmol/L (3.5-5.1); Protein, Total 8.2 g/dL (6.4-8.2); Sodium Level 137 mmol/L (136-145); Triglycerides 428 mg/dL
== END 2021-05-02 23:59 | disposition home or self-care (01) ==
LOC: BIMLAB 15:48
PROVIDERS: PCP Family Medicine; Referring Provider Nurse Practitioner Family; Visit Provider Nurse Practitioner Family
DX: E55.9 Vitamin D deficiency, unspecified (principal); E11.65 Type 2 diabetes mellitus with hyperglycemia; R20.2 Paresthesia of skin; E78.00 Pure hypercholesterolemia, unspecified
CPT/HCPCS: 36415; 80053; 80061; 82306; 82607

== ENCOUNTER → 2021-10-22 | Outpatient (CLI) | payer OTHER, SELFPAY | END | disposition home or self-care (01) | LOC: PSN 13:53 | PROVIDERS: PCP Family Medicine; Referring Provider Internal Medicine Cardiovascular Disease; Visit Provider Internal Medicine Cardiovascular Disease | DX: R55 Syncope and collapse (principal) | CPT/HCPCS: 93225; 93226 ==

== ENCOUNTER → 2021-11-12 | Outpatient (CLI) | payer OTHER, SELFPAY ==
--- NOTE | 2021-11-12 14:42 | ECHOD_ITS ---
Reason For Study: SYNCOPE Procedure This was a 2D Doppler, Color Flow transthoracic echocardiogram. Exam performed in department. Left Ventricle Normal LV size. Left ventricular systolic function is normal. The estimated ejection fraction is 55 %. Stage 1 diastolic dysfunction. No regional wall motion abnormalities noted. Right Ventricle Normal RV size. Normal systolic function. Atria Normal left atrium. Normal right atrium. Mitral Valve Normal mitral valve. Tricuspid Valve Normal tricuspid valve. Aortic Valve Normal aortic valve. Trisinus/trileaflet aortic valve. Pulmonic Valve Normal pulmonic valve. Great Vessels Normal aortic root. The pulmonary artery is normal size. Normal inferior vena cava. Pericardium/Pleural No pericardial effusion. MMode/2D Measurements & Calculations LVIDd: 4.6 cm IVSd: 0.92 cm Ao root diam: 3.1 cm LVIDs: 2.6 cm LVPWd: 0.91 cm RVDd: 2.7 cm FS: 42.9 % LAV(MOD-bp): 42.3 ml LVAd ap4: 26.9 cm2 LVAd ap2: 20.7 cm2 LAV(MOD-bp) Indexed: 20.8 ml/m2 LVLd ap4: 8.0 cm LVLd ap2: 7.4 cm LAV(MOD-sp2): 45.7 ml EDV(MOD-sp4): 79.6 ml EDV(MOD-sp2): 50.5 ml LAV(MOD-sp4): 40.2 ml EDV(sp4-el): 77.2 ml EDV(sp2-el): 48.7 ml LVAs ap4: 11.1 cm2 LVAs ap2: 9.2 cm2 LVLs ap4: 5.9 cm LVLs ap2: 5.5 cm ESV(MOD-sp4): 19.3 ml ESV(MOD-sp2): 13.5 ml ESV(sp4-el): 17.7 ml ESV(sp2-el): 13.0 ml EF(MOD-sp4): 75.7 % EF(MOD-sp2): 73.3 % EF(sp4-el): 77.0 % SV(MOD-sp4): 60.2 ml SV(MOD-sp2): 37.0 ml SV(sp4-el): 59.5 ml LA dimension(2D): 3.5 cm LA A4 area: 15.6 cm2 RA A4 area: 12.0 cm2 Time Measurements MV dec time: 0.24 sec Doppler Measurements & Calculations MV E max travon: 55.2 cm/sec Lat Peak E' Travon: 9.4 cm/sec Med Peak E' Travon: 9.3 cm/sec MV A max travon: 59.4 cm/sec E/E' lat: 5.9 E/E' med: 6.0 MV E/A: 0.93 MV dec slope: 231.0 cm/sec2 Ao V2 max: 119.7 cm/sec LV V1 max: 109.9 cm/sec Ao max P.7 mmHg LV V1 max P.8 mmHg Ao V2 mean: 87.0 cm/sec LV V1 mean P.8 mmHg Ao mean P.4 mmHg LV V1 mean: 79.9 cm/sec Ao V2 VTI: 26.6 cm LV V1 VTI: 22.1 cm PA V2 max: 74.3 cm/sec PI end-d travon: 85.7 cm/sec ECHO/Echo Complete Interpretation Summary Normal LV size. Left ventricular systolic function is normal. The estimated ejection fraction is 55 %. Stage 1 diastolic dysfunction. Structurally normal valves. Ordering Physician: Abner Osullivan Referring Physician: Nancy Phipps Performed By: Kristal Cano, LLUVIA, RVT
== END | disposition home or self-care (01) ==
LOC: CVS 14:40
PROVIDERS: PCP Family Medicine; Referring Provider Internal Medicine Cardiovascular Disease; Visit Provider Internal Medicine Cardiovascular Disease
DX: R55 Syncope and collapse (principal)
CPT/HCPCS: 93306

== ENCOUNTER → 2021-12-24 | Outpatient (CLI) | payer OTHER, SELFPAY ==
[2021-12-24 09:36] LABS: Absolute Lymphocyte Count 2.67 X10^3/uL (0.83-4.51); Absolute Neutrophil Count 4.3 X10^3/uL (2.0-7.7); Basophil# 0.07 X10^3/uL; Basophil% 0.9 % (0-1); Eosinophil# 0.14 X10^3/uL; Eosinophils% 1.8 % (0-5); Hematocrit 39.6 % (37-47); Hemoglobin 13.3 g/dL (12.0-15.0); Lymphocyte # 2.67 X10^3/ul (0.83-4.51); Mean Corp Hgb Conc 33.6 g/dL (32-36); Mean Corpuscular Hgb 29.5 pg (27.0-32.0); Mean Corpuscular Volume 87.8 fL (81-99); Mean Platelet Vol. 9.3 fl (6.2-12.0); Monocyte# 0.42 X10^3/uL; Monocyte% 5.5 % (0-10); NRBC Flagged by Analyzer 0 % (0-5); Neutrophil # 4.31 X10^3/uL (2.7-7.7); Neutrophil % 56.5 % (47-70); Platelet Count 294 K/mm3 (150-450); RBC Distribution Width CV 12.7 % (11.6-14.6); RBC Distribution Width SD 40.7 fl (35.1-43.9); Red Blood Count 4.51 M/mm3 (4.2-5.4); White Blood Count 7.6 K/mm3 (4.4-11.0)
[2021-12-24 09:52] LABS: Anion Gap 6 (5-15); BUN 15 mg/dL (7-18); BUN/Creat Ratio 21.6 RATIO (10-20); Calcium,Total 9.1 mg/dL (8.5-10.1); Chloride 106 mmol/L (98-107); Creatinine, Serum 0.69 mg/dL (0.55-1.02); EST Glomerular Filtration Rate 94 mL/min (>60); Est Glom Filt Rate - Afr Amer 114 mL/min (>60); Glucose 134 mg/dL (74-106); Potassium 4.1 mmol/L (3.5-5.1); Sodium Level 140 mmol/L (136-145)
--- NOTE | 2021-12-24 17:58 | PCM.TILTTABL ---
Staff Staff: Monisha Medeiros Summary Pre Test Resting HR: 72 Pre Test Resting BP: 118/81 Minimum Test HR: 50 Maximum Test HR: 108 Minimum Test BP: 77/31 Maximum Test BP: 122/79 Physician Tilt Table Report Patient's Physicians Primary Care Physician: Nancy Phipps Indications/Diagnosis: Syncope Procedure Comments: The patient was brought to the noninvasive lab in the postabsorptive nonsedated state. The patient was evaluated initial heart rate was noted to be in sinus rhythm at 72 bpm and blood pressure of 118/81 mmHg. The patient was then placed in the 70 degree head upright tilt position. Continuous EKG monitoring as well as blood pressure and heart rate measurements were obtained. The patient was then placed in the recumbent position after 20 minutes and given sublingual nitroglycerin. Patient was then placed back in the 70 degree head upright tilt position. Initial heart rate was noted to increase with complaints of dizziness blurred vision diaphoresis and then patient became bradycardic and hypotensive and passed out. Patient was then placed in the recumbent position and vitals were obtained. They final heart rate was 81 bpm and blood pressure was 99/63 mmHg with patient symptoms recovering. Summary: Abnormal tilt table with evidence of vasodepressor syncope noted.
[2021-12-24 18:04] VITALS: BP 118/81; BP 122/79; BP 77/31
== END | disposition home or self-care (01) ==
PROVIDERS: PCP Family Medicine; Visit Provider Internal Medicine Cardiovascular Disease
DX: R55 Syncope and collapse (principal); E11.65 Type 2 diabetes mellitus with hyperglycemia; E78.5 Hyperlipidemia, unspecified; E66.3 Overweight; R20.2 Paresthesia of skin; E55.9 Vitamin D deficiency, unspecified
CPT/HCPCS: 36415; 80048; 85025; 93660; J7040; A4216

== ENCOUNTER → 2022-03-06 | Outpatient (CLI) | payer OTHER, SELFPAY ==
[2022-03-06 11:04] LABS: Erythrocyte Sedimentation Rate 28 mm/hr (0-30)
[2022-03-06 11:06] LABS: Absolute Lymphocyte Count 3.57 X10^3/uL (0.83-4.51); Basophil# 0.07 X10^3/uL; Basophil% 0.7 % (0-1); Eosinophil# 0.15 X10^3/uL; Eosinophils% 1.6 % (0-5); Hematocrit 40.9 % (37-47); Hemoglobin 13.2 g/dL (12.0-15.0); Lymphocyte # 3.57 X10^3/ul (0.83-4.51); Lymphocyte % 38.1 % (19-41); Mean Corp Hgb Conc 32.3 g/dL (32-36); Mean Corpuscular Hgb 28.9 pg (27.0-32.0); Mean Corpuscular Volume 89.5 fL (81-99); Mean Platelet Vol. 9.5 fl (6.2-12.0); Monocyte# 0.53 X10^3/uL; Monocyte% 5.7 % (0-10); NRBC Flagged by Analyzer 0 % (0-5); Neutrophil # 5.01 X10^3/uL (2.7-7.7); Neutrophil % 53.6 % (47-70); Platelet Count 411 K/mm3 (150-450); RBC Distribution Width CV 12.7 % (11.6-14.6); RBC Distribution Width SD 41.6 fl (35.1-43.9); Red Blood Count 4.57 M/mm3 (4.2-5.4); White Blood Count 9.4 K/mm3 (4.4-11.0)
[2022-03-06 11:29] LABS: AST(SGOT) 26 U/L (15-37); Alanine Aminotransfer ALT/SGPT 41 U/L (13-56); Albumin, Serum 4.2 g/dL (3.2-5.0); Alkaline Phosphatase 158 U/L (45-117); Anion Gap 3 (5-15); BUN 18 mg/dL (7-18); BUN/Creat Ratio 23.2 RATIO (10-20); Calcium,Total 9.6 mg/dL (8.5-10.1); Chloride 104 mmol/L (98-107); Creatinine, Serum 0.78 mg/dL (0.55-1.02); EST Glomerular Filtration Rate 83 mL/min (>60); Est Glom Filt Rate - Afr Amer 100 mL/min (>60); Glucose 124 mg/dL (74-106); LDH 139 U/L (84-246); Potassium 4.3 mmol/L (3.5-5.1); Protein, Total 8.2 g/dL (6.4-8.2); Sodium Level 137 mmol/L (136-145)
[2022-03-07 14:09] LABS: Anti-Centromere B Ab <0.2 AI (0.0-0.9); Anti-Chromatin <0.2 AI (0.0-0.9); Anti-Jo <0.2 AI (0.0-0.9); Anti-Scleroderma-70 AB <0.2 AI (0.0-0.9); RNP Ab <0.2 AI (0.0-0.9); SJOGREN'S Anti-SS-A test < 0.2 AI (0.0-0.9); SJOGREN'S Anti-SS-B test < 0.2 AI (0.0-0.9); Smith Ab <0.2 AI (0.0-0.9)
[2022-03-07 15:08] LABS: Endomysial Antibody IgA Negative (Negative)
[2022-03-07 16:26] LABS: Anti-dsDNA Ab <1 IU/mL (0-9)
[2022-03-07 17:15] LABS: Immunoglobulin A 381 mg/dL (87-352); t-Transglutaminase IgA <2 U/mL (0-3)
[2022-03-10 19:07] LABS: Alpha-1-Globulins 0.2 g/dL (0.0-0.4); Alpha-2-Globulins 1.3 g/dL (0.4-1.0); Cytoplasmic Ab (C-ANCA) <1:20 titer (Neg:<1:20); Gamma Globulin 0.7 g/dL (0.4-1.8); Immunoglobulin A 372 mg/dL (87-352); Immunoglobulin E 17 IU/mL (6-495); Immunoglobulin G 710 mg/dL (586-1602); Immunoglobulin M 47 mg/dL (26-217); PROEL- TOTAL PROTEIN 7.6 g/dL (6.0-8.5); QNTFERON TB Mitogen Value > 10.00 IU/mL (.); QNTFERON TB Nil Value 0.01 IU/mL (.); QNTFERON TB1+ Ag Value 0 IU/mL (.); QNTFERON TB2+ Ag Value 0.01 IU/mL (.)
[2022-03-10 20:09] LABS: Gastrin, Serum 17 pg/mL (0-115); Perinuclear Ab (P-ANCA) <1:20 titer (Neg:<1:20); QNTIFERON TB Positive Criteria Negative (Negative)
[2022-03-12 22:17] LABS: Calprotectin, Stool <16 ug/g (0-120); Fats, Neutral Normal (.); Fats, Total Normal (.)
[2022-03-12 22:18] LABS: Pancreatic Elastase, Fecal > 500 (>200)
== END | disposition home or self-care (01) ==
PROVIDERS: PCP Family Medicine; Referring Provider Internal Medicine Gastroenterology; Visit Provider Internal Medicine Gastroenterology
DX: K58.9 Irritable bowel syndrome, unspecified (principal); R19.7 Diarrhea, unspecified
CPT/HCPCS: 36415; 80053; 82274; 82653; 82705; 82784; 82785; 82941; 83516; 83615; 83630; 83993; 84165; 85025; 85652; 86140; 86225; 86235; 86255; 86256; 86334; 86480; 87177; 87209; 87329; 87493; 87506

== ENCOUNTER → 2022-03-10 | Outpatient (CLI) | payer OTHER, SELFPAY | END | disposition home or self-care (01) | LOC: LABSPEC 10:17 | PROVIDERS: PCP Family Medicine; Visit Provider Internal Medicine Gastroenterology | DX: R10.9 Unspecified abdominal pain (principal) | CPT/HCPCS: 81050; 84120 ==

== ENCOUNTER → 2022-04-07 | Outpatient (CLI) | payer OTHER, SELFPAY ==
--- NOTE | 2022-04-07 10:07 | NM_ITS ---
CLINICAL: 51-year-old diabetic female with history of chronic abdominal pain. SEMI-SOLID PHASE 99m Tc SULFUR COLLOID GASTRIC EMPTYING STUDY COMPARISON: CT of the abdomen-pelvis report 04/07/2022 FINDINGS: The patient was administered 1.1 mCi of 99m Tc sulfur colloid mixed with oatmeal and consumed per os. Image acquisitions in the anterior-posterior projections were obtained for 60 minutes. There is prompt visualization of the stomach. There is no gastroesophageal reflux identified. There is no appreciable emptying of the gastric contents during 60 minutes of sequential imaging. The T ? linear fit was calculated to be > 500 minutes, (Normal: 12-56 minutes). NM/Gastric Emptying Study IMPRESSION: 1. SEVERELY ABNORMAL 99m Tc sulfur colloid semi-solid phase (oatmeal) gastric emptying imaging examination. A. There is markedly delayed semi-solid phase gastric emptying compared to normal controls. (Buddy et al, J Nucl Med Tech 38: 186, 2010). Electronically Signed: Mandeep Banks, at 17:25 EST ,
--- NOTE | 2022-04-07 13:30 | CT_ITS ---
STUDY: CT ABDOMEN AND PELVIS WITH CONTRAST REASON FOR EXAM: Female, 51 years old. Abd pain, diarrhea RADIATION DOSAGE (If Supplied By Facility): CTDIvol = ( 18.88 ) mGy, DLP = ( 962.91 ) mGycm TECHNIQUE: Transaxial images were obtained from the dome of the diaphragm to the symphysis pubis with oral contrast. Oral and amp; IV Readi-CAT and amp; 100mL Isovue-300 was administered. Sagittal and coronal images were reconstructed. Individualized dose optimization techniques were used for this CT. COMPARISON: None. FINDINGS: The visualized lung bases are unremarkable. The visualized portions of the heart are within normal limits. There is decreased attenuation of the liver consistent with steatosis. The patient is status post cholecystectomy. Normal spleen. Normal pancreas. Normal bilateral adrenal glands. Normal right kidney. Normal left kidney. Normal visualized stomach. Normal small intestine. Normal colon. The appendix is visualized and appears normal. There is scattered atherosclerotic calcification of the abdominal aorta, without a demonstrated aneurysm. Normal inferior vena cava. There is a 2.8 cm x 1.8 cm x 2.7 cm rounded hypodense nodule in the posterior aspect of the left iliopsoas muscle. Normal urinary bladder. The patient is status post hysterectomy. Normal abdominal wall. Normal osseous structures. CT/Abdomen/Pelvis WITH Contrast IMPRESSION: Fatty infiltration of the liver. Status post cholecystectomy. 2.8 cm x 1.7 x 2.7 cm rounded hypodense nodule in the posterior aspect of the left iliopsoas muscle. Electronically Signed: Rowdy Dill MD at 13:57 EST ,
[2022-04-10 04:07] LABS: Coproporphyrin I, Urine 14 ug/L (Undefined); Coproporphyrin I,24 Hour 23 ug/24 hr (0-24); Coproporphyrin III, Urine 26 ug/L (Undefined); Heptacarboxylporph.,24 Hour 5 ug/24 hr (0-4); Heptacarboxylporph.,Urine 3 ug/L (Undefined); Hexacarboxylporph.,24 Hour <2 ug/24 hr (0-1); Hexacarboxylporph.,Urine <1 ug/L (Undefined); Pentacarboxylporph,24 Hour <2 ug/24 hr (0-4); Pentacarboxylporphyrin,Urine <1 ug/L (Undefined); Uroporphyrin, 24 Hour 12 ug/24 hr (0-24); Uroporphyrin,Urine 7 ug/L (Undefined)
[2022-04-11 18:56] LABS: Coproporphyrin III,24 Hour 44 ug/24 hr (0-74)
== END | disposition home or self-care (01) ==
PROVIDERS: PCP Family Medicine; Referring Provider Internal Medicine Gastroenterology; Visit Provider Internal Medicine Gastroenterology
DX: R10.9 Unspecified abdominal pain (principal); R19.7 Diarrhea, unspecified
CPT/HCPCS: 74177; 78264; 81050; 84120; A9541; Q9967

== ENCOUNTER → 2022-04-28 | Outpatient (CLI) | payer OTHER, SELFPAY ==
--- NOTE | 2022-04-28 08:23 | US_ITS ---
STUDY: ABDOMINAL ULTRASOUND - ELASTOGRAPHY REASON FOR VISIT: Female, 51 years old. Fatty infiltration of the liver. TECHNIQUE: Liver stiffness measurements were obtained on a [employer] RS 85 ultrasound machine using a CA 1-7 probe following the SRU guidelines. 3 measurements were obtained using a 2-D-SWE method. TheIQR/M was 12% suggesting a quality data set. TECHNICAL QUALITY: Adequate. COMPARISON: None. FINDINGS: Liver: Fatty infiltration of the liver. Median liver stiffness measured 4.5 kPa. US/ABD Limited w/ Elastography IMPRESSION: Liver stiffness measures 4.5 kPa compatible with F0-F1 (Normal to mild liver fibrosis) Metavir score. Electronically Signed: Rowdy Dill MD at 10:24 EST ,
[2022-04-28 09:29] LABS: ALB/GLOB Ratio 1.1 RATIO (0.9-2.4); AST(SGOT) 27 U/L (15-37); Alanine Aminotransfer ALT/SGPT 38 U/L (13-56); Albumin, Serum 4.1 g/dL (3.2-5.0); Alkaline Phosphatase 151 U/L (45-117); Anion Gap 6 (5-15); BUN 14 mg/dL (7-18); BUN/Creat Ratio 16.8 RATIO (10-20); Calcium,Total 9.5 mg/dL (8.5-10.1); Chloride 103 mmol/L (98-107); Cholesterol 162 mg/dL (200); Creatinine, Serum 0.84 mg/dL (0.55-1.02); EST Glomerular Filtration Rate 76 mL/min (>60); Est Glom Filt Rate - Afr Amer 92 mL/min (>60); Globulin 3.9 g/dL (2.2-4.2); Glucose 124 mg/dL (74-106); High Density Lipoprotein 39 mg/dL; Potassium 3.9 mmol/L (3.5-5.1); Sodium Level 137 mmol/L (136-145); Thyroid Stim Hormone (TSH) 0.47 uIU/mL (0.358-3.74); Triglycerides 206 mg/dL; Very Low Density Lipoprotein 41 mg/dL (5-40)
[2022-04-28 09:30] LABS: Ferritin 210 ng/mL (8-252)
[2022-04-28 09:54] LABS: HIV - WCH Non-Reactive (Nonreactive)
[2022-04-28 10:13] LABS: Hemoglobin A1c 5.8 % (3.8-5.6)
[2022-04-29 15:22] LABS: Anti-Mitochondrial AB <20.0 Units (0.0-20.0)
[2022-04-29 20:08] LABS: Angiotensin Convert Enzyme 49 U/L (14-82); Ceruloplasmin 30.7 mg/dL (19.0-39.0); HEPATITIS B SURFACE AG Negative (Negative); Hep C Antibodies Non Reactive (Non Reactive); Hepatitis A IgM Antibody Negative (Negative); Hepatitis B Core AB IgM Negative (Negative)
[2022-04-29 20:33] LABS: AFP, Tumor Marker < 1.8 ng/mL (0.0-9.2); Anti-Smooth Muscle ABS 6 Units (0-19); Copper, Serum or Plasma 172 ug/dL (80-158); Haptoglobin 308 mg/dL (33-346)
== END | disposition home or self-care (01) ==
LOC: US 08:06
PROVIDERS: Nurse Practitioner Family; PCP Family Medicine; Referring Provider Internal Medicine Gastroenterology; Visit Provider Internal Medicine Gastroenterology
DX: K76.0 Fatty (change of) liver, not elsewhere classified (principal); E11.9 Type 2 diabetes mellitus without complications; E55.9 Vitamin D deficiency, unspecified
CPT/HCPCS: 36415; 76705; 76981; 80053; 80061; 80074; 82105; 82164; 82306; 82390; 82525; 82728; 83010; 83036; 83516; 84443; 86703

== ENCOUNTER 2022-05-13 08:47 | Outpatient (CLI) | payer OTHER, SELFPAY ==
[2022-05-13] VITALS (9 sets, daily range): BP systolic 97–126; BP diastolic 58–83; PULSE 97–114; RESP 9–18; TEMP 36.2; O2SAT 98–100; BMI 25.8
--- NOTE | 2022-05-13 09:09 | CT_ITS ---
PROCEDURE: CT GUIDED biopsy of the left iliac is muscle. DATE: May 13, 2022. INDICATION: Female, 51 years old. Cystic mass in the left iliac this muscle. PHYSICIAN: Rowdy Dill M.D. RADIATION DOSAGE (If Supplied By Facility): CTDIvol = ( 18 ) mGy, DLP = ( 452.69 ) mGycm. Individualized optimization techniques were utilized. PROCEDURE: The risks, benefits, and alternatives to the procedure were explained to the patient. The specific risk of hemorrhage requiring further treatment or intervention was detailed and accepted. Follow-up instructions were discussed with the patient as well. Written informed consent was obtained. The patient was brought into the CT suite and placed in the supine position. . An appropriate entry site was identified. The overlying skin was prepped and draped in the usual sterile fashion. 1% lidocaine was administered subcutaneously for local anesthesia. Conscious sedation was performed. The patient received 2 mg of Versed and 50 mcg of fentanyl intravenously. Conscious sedation was started at 10:07 AM and terminated at 10:28 AM. The patient was independently monitored by the department nurse. Under CT guidance, a total of 4 passes were performed utilizing an 18-gauge core biopsy needle system. The specimens were then placed in the appropriate fluid and transported to the laboratory for analysis. Hemostasis was obtained. The patient tolerated the procedure well without immediate complications. CT/Biopsy/Inj or Needle Placement IMPRESSION: Successful CT guided biopsy of the cystic mass in the left iliac is muscle utilizing a 18-gauge core biopsy needle system, as described above. Conscious sedation protocol was followed. Electronically Signed: Rowdy Dill MD at 10:49 EDT ,
[2022-05-13 09:25] LABS: International Normalized Ratio 1.1; Prothrombin Time (Protime)PT. 13.4 SECONDS (11.7-14.9)
[2022-05-13 09:25] LABS: Erythrocyte Sedimentation Rate 6 mm/hr (0-30)
[2022-05-13 09:27] LABS: Partial Thromboplast Time 29.9 Seconds (24.1-36.2)
[2022-05-13 09:30] LABS: Absolute Lymphocyte Count 2.13 X10^3/uL (0.83-4.51); Absolute Neutrophil Count 6.5 X10^3/uL (2.0-7.7); Basophil# 0.03 X10^3/uL; Basophil% 0.3 % (0-1); Eosinophil# 0.18 X10^3/uL; Eosinophils% 1.9 % (0-5); Hematocrit 45.3 % (37-47); Hemoglobin 14.7 g/dL (12.0-15.0); Lymphocyte # 2.13 X10^3/ul (0.83-4.51); Lymphocyte % 22.2 % (19-41); Mean Corp Hgb Conc 32.5 g/dL (32-36); Mean Corpuscular Hgb 29.2 pg (27.0-32.0); Mean Corpuscular Volume 90.1 fL (81-99); Mean Platelet Vol. 9.7 fl (6.2-12.0); Monocyte# 0.73 X10^3/uL; Monocyte% 7.6 % (0-10); NRBC Flagged by Analyzer 0 % (0-5); Neutrophil % 67.6 % (47-70); Platelet Count 434 K/mm3 (150-450); RBC Distribution Width CV 12.4 % (11.6-14.6); RBC Distribution Width SD 40.8 fl (35.1-43.9); Red Blood Count 5.03 M/mm3 (4.2-5.4); White Blood Count 9.6 K/mm3 (4.4-11.0)
[2022-05-13 09:34] LABS: ALB/GLOB Ratio 1.1 RATIO (0.9-2.4); AST(SGOT) 25 U/L (15-37); Alanine Aminotransfer ALT/SGPT 47 U/L (13-56); Albumin, Serum 4.3 g/dL (3.2-5.0); Alkaline Phosphatase 179 U/L (45-117); Anion Gap 6 (5-15); BUN 27 mg/dL (7-18); BUN/Creat Ratio 27.2 RATIO (10-20); Calcium,Total 9.8 mg/dL (8.5-10.1); Chloride 105 mmol/L (98-107); Creatinine, Serum 0.99 mg/dL (0.55-1.02); EST Glomerular Filtration Rate 62 mL/min (>60); Est Glom Filt Rate - Afr Amer 75 mL/min (>60); Globulin 3.9 g/dL (2.2-4.2); Glucose 132 mg/dL (74-106); Potassium 3.5 mmol/L (3.5-5.1); Protein, Total 8.2 g/dL (6.4-8.2); Sodium Level 139 mmol/L (136-145)
[2022-05-13] MEDS: 0.9% Saline Lock 10 ML Syringe IV (10:07)
[2022-05-13] MEDS: fentaNYL 100 MCG/2 ML Ampul IV (10:07)
[2022-05-13] MEDS: Midazolam 2 MG/2 ML Syringe IV (10:07)
[2022-05-13] MEDS: Lidocaine 2% (20 ml mdv) 20 ML Vial INFILT (10:21)
--- NOTE | 2022-05-13 11:00 | ASPIGT_PTH ---
PATIENT: KULWANT GOMEZ LOC: CT U#:[id number] AGE/SX: 51/F ROOM: RE05/13/[address]: Dr. Pedro Luis Gardiner MD : 1970 BED: DIS: 05/13/2022 SPEC #: [id number] RECD: 05/13/22 11:27 STATUS: NAVEED REQ #: [id number] NICK: 05/13/22 11:[address]: Pedro Luis Gardiner DEPT: SURGICAL PATHOLOGY RECD BY: Estefani Graves ENTERED: 05/13/22 11:28 SP TYPE: ASP RAD OTHR DR: MD Dr. Nancy De Leon MD Dr. Rahsaan Friend, DO Tissues: Muscle of abdomen, NOS Procedures: FNA Specimen Adequacy Special Stain Group II Surgery Specimen Level IV Imprint (control) HEADER OPERATION: CT-guided left iliopsoas muscle biopsy PRE-OP DIAGNOSIS: Nodule in muscle TISSUE SUBMITTED: Left iliopsoas muscle 18-gauge core biopsy x4 MICROSCOPIC DIAGNOSIS Left iliopsoas muscle mass, CT-guided core biopsy: Smear slides show mucoid material and scanty clusters of ovoid cells with mild cytological atypia. H & E stained slides show skeletal muscle tissue. See comment. SJ:rg 05/20/2022 COMMENT The specimen is evaluated at the time of biopsy by Dr. Mesa. Immediate Evaluation = Mucoid tissue mixed with rare mildly atypical cells noted. The specimen is sent to [facility] for expert opinion, reviewed by Dr. Short and the above diagnosis is rendered. Dr. Short also commented ?findings are not specific and nondiagnostic.? The complete report is viewable in the patient's EMR. Excision of the lesion is suggested for definite diagnosis. Case has been reviewed in consultation with Dr. Dunn who concurs with the above diagnosis. IDC:AM MICROSCOPIC DESCRIPTION Slides are reviewed. GROSS DESCRIPTION Received in fixative is one container labeled with the patient's name and designated left iliopsoas muscle biopsy. The specimen consists of multiple irregular fragments of gomez soft tissue mixed with mucoid tissue that in aggregate measure 2.0 x 0.1 x <0.1 cm. The specimen is totally submitted in one cassette. Two touch imprints are prepared at the time of core biopsy. / SJ:rg 05/13/2022 TC: Cannot code CPT: 34966, 88283 ADDENDUM ADDENDUM ADDENDUM ADDENDUM ADDENDUM ADDENDUM ADDENDUM ADDENDUM ADDENDUM ADDENDUM ADDENDUM ADDENDUM 07/28/2022 10:20 ADDENDUM 07/28/2022 10:20 ADDENDUM 07/28/2022 10:20 ADDENDUM 07/28/2022 10:20 ADDENDUM 07/28/2022 10:20 This addendum is added to incorporate an outside pathology consultation report. The case was examined at [facility] (#[id number]) and the following diagnosis was rendered. Soft tissue, left iliopsoas muscle, biopsy: Unremarkable skeletal muscle tissues, nondiagnostic. Mucoid material of uncertain origin/significance noted on submitted adequacy smear slide. Please see complete above mentioned consultation report in EMR
== END 2022-05-13 23:59 | disposition home or self-care (01) ==
PROVIDERS: Internal Medicine Gastroenterology; Radiology Diagnostic Radiology; PCP Family Medicine; Referring Provider Family Medicine; Visit Provider Family Medicine
DX: M62.9 Disorder of muscle, unspecified (principal); E11.65 Type 2 diabetes mellitus with hyperglycemia; K58.0 Irritable bowel syndrome with diarrhea; M19.90 Unspecified osteoarthritis, unspecified site; E78.5 Hyperlipidemia, unspecified; Z79.899 Other long term (current) drug therapy
CPT/HCPCS: 20206; 36415; 77012; 80053; 85025; 85610; 85652; 85730; 86140; 88172; 88305; 88313; 99156; J7050; A4216

== ENCOUNTER → 2022-05-25 | Outpatient (CLI) | payer OTHER, SELFPAY | END | disposition home or self-care (01) | PROVIDERS: PCP Family Medicine; Visit Provider Internal Medicine Gastroenterology | DX: R19.7 Diarrhea, unspecified (principal) | CPT/HCPCS: 87493; 87506 ==

== ENCOUNTER → 2022-06-05 | Outpatient (CLI) | payer OTHER, SELFPAY ==
[2022-06-09 19:38] LABS: Gastrin, Serum 22 pg/mL (0-115)
[2022-06-14 00:07] LABS: 5-HIAA, 24UR 4.7 mg/24 hr (0.0-14.9); 5-HIAA, UR 2.5 mg/L (Undefined)
== END | disposition home or self-care (01) ==
PROVIDERS: PCP Family Medicine; Referring Provider Nurse Practitioner Family; Visit Provider Internal Medicine Gastroenterology
DX: R19.7 Diarrhea, unspecified (principal); R55 Syncope and collapse
CPT/HCPCS: 36415; 82533; 82941; 83497

== ENCOUNTER 2022-06-08 14:48 | Emergency (ER) | payer OTHER, SELFPAY ==
[2022-06-08 14:49] VITALS: BP 107/50; PULSE 97; RESP 14; TEMP 36.1; O2SAT 100; BMI 20.7
--- NOTE | 2022-06-08 15:20 | EX.ED.DYSGE1 ---
HPI <CANDY Lincoln - Last Filed: 06/08/22 17:56> History of Present Illness Chief Complaint: Syncope Narrative Narrative: 51-year-old female with past medical history of DM2 states she has been dealing with episodes of vomiting and explosive diarrhea for several years. It's been increasing in frequency and occurred 4-5 times this month. She often passes out when it occurs. She had a similar episode today starting around noon and was in the bathroom vomiting and having multiple episodes of diarrhea and was lying on the floor and was not responding very well to her family. They were able to stand her up and get her in bed but she briefly passed out in the bed. They were able to help her walk to the car to come in. Patient states she has been undergoing work-up for this with Dr. Villeda. She had a 1 hour gastric emptying test that was significantly delayed and he is suspecting gastroparesis. She takes Zofran as needed for her symptoms. She states she is scheduled for other upcoming test. She reports having normal endoscopy and colonoscopy in the past. She is having no blood in her vomit or stool. No abdominal pain. PFSH <CANDY Lincoln - Last Filed: 06/08/22 17:56> [facility] Medical History Arthritis Breast lump Diabetes Gallstones Gastrointestinal problem H/O fracture of femur H/O transfusion of whole blood History of IBS Hyperlipidemia Kidney stones Seasonal allergies Skin cancer Vasodepressor syncope Home Medications propranolol 80 mg capsule,24 hr,extended release 80 mg PO QHS headaches 11/02/17 [History Last Taken 05/12/22] FreeStyle Angie 2 [place] (flash glucose scanning reader) #1 ea 10/23/20 [Rx Last Taken Unknown] ondansetron 8 mg disintegrating tablet 8 mg PO Q8H PRN Nausea 09/27/21 [History Last Taken 05/12/22] FreeStyle Angie 2 Sensor (flash glucose sensor) #6 ea 11/21/21 [Rx Last Taken Unknown] atorvastatin 20 mg tablet 20 mg PO DAILY #90 tabs 01/01/22 [Rx Last Taken 05/12/22] blood-glucose sensor (FreeStyle Angie 3 Sensor device) #6 ea 04/23/22 [Rx Last Taken Unknown] tirzepatide 7.5 mg/0.5 mL subcutaneous pen injector (Mounjaro) 7.5 mg (0.5 mL) subcut QWEEK #2 mL 05/12/22 [Rx Last Taken 05/09/22] cholestyramine-aspartame 4 gram oral powder for susp in a packet (Cholestyramine Light) 4 g PO BID #10 ea 05/14/22 [Rx Last Taken Unknown] metoclopramide HCl 5 mg tablet (Reglan) 5 mg PO QAC #90 tabs 05/14/22 [Rx Last Taken Unknown] scopolamine base 1 mg over 3 days transdermal patch 1 patch transdermal Q3D PRN nausea and vomiting #24 ea 05/14/22 [Rx Last Taken Unknown] midodrine 5 mg tablet 5 mg PO BID #60 tabs 06/03/22 [Rx Last Taken Unknown] colestipol 1 gram tablet 1 g PO ONCE #60 tabs 06/06/22 [Rx Last Taken Unknown] Allergy/AdvReac Type Severity Reaction Status Date / Time hydrocodone Allergy Unknown hallucinati Verified 06/08/22 14:49 ons Penicillins [PCN] Allergy Hives Verified 06/08/22 14:49 codeine AdvReac Other Verified 06/08/22 14:49 meperidine [From Demerol] AdvReac Other Verified 06/08/22 14:49 Surgical History Abnormal tilt table test (12/24/21) H/O knee surgery H/O total hysterectomy History of cholecystectomy Social History Smoking Status: Never smoker alcohol intake: current alcohol intake frequency: 0-2 drinks per day substance use type: does not use frequency: 3-4 times per week ROS <CANDY Lincoln - Last Filed: 06/08/22 17:56> ROS ED ROS Narrative Constitutional: Negative for fever, chills, malaise. CVS: Negative for palpitations, chest pain. Respiratory: Negative for shortness of breath. GI: Positive for nausea, vomiting, diarrhea. Negative for abdominal pain, melena, hematochezia. Neuro: Negative for headache. EXAM <CANDY Lincoln - Last Filed: 06/08/22 17:56> Physical Exam Narrative Exam Narrative: CONST: Patient sitting in no acute distress. EYES: Normal inspection. ENT: Normal inspection, slightly dry mucous membranes. NECK: Normal inspection. RESP: No respiratory distress, CTAB. CVS: Regular rate and rhythm, no murmur, no gallop. ABD: Soft and nontender, no guarding or rebound, nondistended, normal bowel sounds x4. SKIN: Color normal, no rash, warm, dry, intact. EXTREMITIES: Normal appearance, no pedal edema. NEURO: Oriented x4. PSYCH: Normal affect. Const Vital Signs: 06/08/22 14:49 06/08/22 15:02 Temperature 97 F L Temperature Source Temporal Pulse Rate 97 Respiratory Rate 14 Respiratory Effort Normal Respiratory Pattern Normal Blood Pressure 107/50 L Blood Pressure Mean 69 Pulse Ox 100 Oxygen Delivery Method Room Air <Dr. Alvarado Ibarra DO - Last Filed: 06/08/22 17:21> Physical Exam Const Vital Signs: 06/08/22 14:49 06/08/22 15:02 Temperature 97 F L Temperature Source Temporal Pulse Rate 97 Respiratory Rate 14 Respiratory Effort Normal Respiratory Pattern Normal Blood Pressure 107/50 L Blood Pressure Mean 69 Pulse Ox 100 Oxygen Delivery Method Room Air MDM <Nathalia Tiwari PA - Last Filed: 06/08/22 17:56> [facility] Narrative Medical decision making narrative: History gathered from: Patient and mom Patient has had episodes of intermittent profuse vomiting and diarrhea ongoing for years. She often passes out with this. She had a similar episode today with a syncopal episode. However she states it was a. She was not responding well to her family but she does remember lying on the bathroom floor. No clear seizure activity. No tongue bite or incontinence. She has no abdominal pain associated with these episodes.. She appears well and nontoxic. BP is 107/58 with otherwise normal vital signs. She has slightly dry mucous membranes. Heart and lung exam is normal. Abdomen is soft, nontender, nondistended. Patient was given IV fluids and Reglan while labs were obtained. CBC shows white count of 18.6, normal hemoglobin. BMP overall unremarkable. Alk phos of 209 similar to previous. Her cardiac work-up is unremarkable. With the family's concern for possible seizure and her leukocytosis a CT scan of the brain and abdomen/pelvis were ordered but when patient was taken over to imaging she refused the tests. She states that she has a CT scheduled with Dr. Villeda and she would rather follow-up outpatient. I think this is reasonable if this is what she would like to do. I very low concern that she had a seizure today. She has recurrent symptoms of this nature and was not postictal. Her procalcitonin is normal. Records show she had a tilt table test that was positive for diagnosis of vasovagal syncope which her episodes sound consistent with. She is also had a normal echocardiogram within the last year. After IV fluids and Reglan patient is feeling improved, has had no vomiting or diarrhea here, and will be discharged to follow-up with her physicians. I provided a neurology referral as well. Differential: Vasovagal syncope, intra-abdominal process such as small bowel obstruction, diverticulitis, cardiac etiology External records reviewed: Gastric emptying study on 04/07/2022 is severely abnormal with markedly delayed gastric emptying. Echocardiogram on 11/12/2021 shows normal EF 55%, no valvular abnormalities. Abnormal tilt table test with evidence of vasodepressor syncope noted on 12/24/2021. Lab Data Labs: Laboratory Results - last 24 hr 06/08/22 06/08/22 06/08/22 15:46 15:46 15:46 WBC 18.6 H RBC 4.91 Hgb 14.4 Hct 44.0 MCV 89.6 MCH 29.3 MCHC 32.7 RDW Std Deviation 41.0 RDW Coeff of Barry 12.5 Plt Count 417 MPV 9.6 Immature Gran % (Auto) 0.600 Neut % (Auto) 85.1 H Lymph % (Auto) 9.8 L [place] % (Auto) 3.9 Eos % (Auto) 0.3 Baso % (Auto) 0.3 Absolute Neuts (auto) 15.9 H Absolute Lymphs (auto) 1.82 Nucleated RBC % 0 Sodium 138 Potassium 3.8 Chloride 106 Carbon Dioxide 26.0 Anion Gap 6 BUN 17 Creatinine 1.11 H Estim Creat Clear Calc 61.21 Est GFR (MDRD) Af Amer 66 Est GFR (MDRD) Non-Af 55 L BUN/Creatinine Ratio 15.3 Glucose 116 H Calcium 9.7 Total Bilirubin 0.90 AST 32 ALT 43 Alkaline Phosphatase 209 H Troponin I High Sens < 3 L Total Protein 7.6 Albumin 3.9 Globulin 3.7 Albumin/Globulin Ratio 1.1 Prolactin Urine Test 06/08/22 06/08/22 15:46 16:39 WBC RBC Hgb Hct MCV MCH MCHC RDW Std Deviation RDW Coeff of Barry Plt Count MPV Immature Gran % (Auto) Neut % (Auto) Lymph % (Auto) [place] % (Auto) Eos % (Auto) Baso % (Auto) Absolute Neuts (auto) Absolute Lymphs (auto) Nucleated RBC % Sodium Potassium Chloride Carbon Dioxide Anion Gap BUN Creatinine Estim Creat Clear Calc Est GFR (MDRD) Af Amer Est GFR (MDRD) Non-Af BUN/Creatinine Ratio Glucose Calcium Total Bilirubin AST ALT Alkaline Phosphatase Troponin I High Sens Total Protein Albumin Globulin Albumin/Globulin Ratio Prolactin 51.0 Urine Test Negative Radiography Diagnostic Testing: Clinical Impression(s) from Imaging Studies Chest X-Ray 06/08/22 16:01 IMPRESSION: Normal x-ray examination of the chest. Electronically Signed: Mandeep Palacios MD at 16:46 EDT , ED attending interpretation of 2 view chest shows normal heart size, no acute infiltrate or effusion. <Dr. Alvarado Ibarra, DO - Last Filed: 06/08/22 17:21> [facility] Lab Data Attestation: I reviewed the patient's lab results. Lab results narrative: EKG with normal sinus rhythm, normal axis, normal intervals, no STEMI no signs of right heart strain CBC with marked leukocytosis, no anemia or thrombocytopenia Troponin is negative, no evidence of myocardial ischemia LFTs show no evidence of hepatobiliary pathology. BMP without evidence of significant electrolyte abnormalities, no anion gap, no acute kidney injury. Labs: Laboratory Results - last 24 hr 06/08/22 06/08/22 06/08/22 15:46 15:46 15:46 WBC 18.6 H RBC 4.91 Hgb 14.4 Hct 44.0 MCV 89.6 MCH 29.3 MCHC 32.7 RDW Std Deviation 41.0 RDW Coeff of Barry 12.5 Plt Count 417 MPV 9.6 Immature Gran % (Auto) 0.600 Neut % (Auto) 85.1 H Lymph % (Auto) 9.8 L [place] % (Auto) 3.9 Eos % (Auto) 0.3 Baso % (Auto) 0.3 Absolute Neuts (auto) 15.9 H Absolute Lymphs (auto) 1.82 Nucleated RBC % 0 Sodium 138 Potassium 3.8 Chloride 106 Carbon Dioxide 26.0 Anion Gap 6 BUN 17 Creatinine 1.11 H Estim Creat Clear Calc 61.21 Est GFR (MDRD) Af Amer 66 Est GFR (MDRD) Non-Af 55 L BUN/Creatinine Ratio 15.3 Glucose 116 H Calcium 9.7 Total Bilirubin 0.90 AST 32 ALT 43 Alkaline Phosphatase 209 H Troponin I High Sens < 3 L Total Protein 7.6 Albumin 3.9 Globulin 3.7 Albumin/Globulin Ratio 1.1 Prolactin Urine Test 06/08/22 06/08/22 15:46 16:39 WBC RBC Hgb Hct MCV MCH MCHC RDW Std Deviation RDW Coeff of Barry Plt Count MPV Immature Gran % (Auto) Neut % (Auto) Lymph % (Auto) [place] % (Auto) Eos % (Auto) Baso % (Auto) Absolute Neuts (auto) Absolute Lymphs (auto) Nucleated RBC % Sodium Potassium Chloride Carbon Dioxide Anion Gap BUN Creatinine Estim Creat Clear Calc Est GFR (MDRD) Af Amer Est GFR (MDRD) Non-Af BUN/Creatinine Ratio Glucose Calcium Total Bilirubin AST ALT Alkaline Phosphatase Troponin I High Sens Total Protein Albumin Globulin Albumin/Globulin Ratio Prolactin 51.0 Urine Test Negative Radiography Diagnostic Testing: Clinical Impression(s) from Imaging Studies Chest X-Ray 06/08/22 16:01 IMPRESSION: Normal x-ray examination of the chest. Electronically Signed: Mandeep Palacios MD at 16:46 EDT , EKG Initial EKG: Attestation: I personally reviewed and interpreted this EKG as follows: Treatment and Re-Evaluation :: ED attending note: I evaluated the patient in conjunction with the NEFTALI. I agree with his/her statements and above findings. I have personally performed a face to face assessment of the patient and have reviewed the NEFTALI Note. I performed a substantive portion of the visit including all aspects of the following. I personally saw the patient performed chart review, physical exam, reviewed labs, imaging (if obtained), and formulated a treatment and management plan. Exam: Nursing triage notes reviewed, Vital signs reviewed Constitutional: please see mdm HENT: MMM Eyes: Pupils equal round and reactive to light, Extraocular muscles intact Neck: No stridor, no JVD, full neck ROM Lungs: Clear to auscultation, No wheezing or rales. No increased work of breathing, no conversational dyspnea, no accessory muscle use, no nasal flaring. No respiratory distress noted Heart: Regular rate and rhythm, No murmurs, No rubs and No gallops, 2+ distal pulses (radial, femoral, posterior tibial) in all extremities Abdomen: Soft, there is no tenderness, rigidity, rebound or guarding, no obvious peritoneal signs, no palpable pulsatile abdominal masses, no auscultated abdominal bruit : No CVAT Extremities: No edema Neuro: Alert and oriented x3, neuro exam at baseline, cranial nerves II through XII are intact. No pain with extraocular muscle movement. There is negative test of skew. Normal speech. 5 of 5 strength in upper and lower extremities in flexion extension. Intact sensation to light touch in upper and lower extremity dermatomes. No truncal or extremity ataxia. No dysdiadochokinesia. Normal gait. 2+ reflexes. No meningeal signs. Negative Babinski. NIH of 0 Skin: No rash or lesions noted MDM/plan: Chief Complaint: Syncope External records reviewed: Negative tilt table testing in the past, Echocardiogram from 2021 shows ejection fraction 55% I considered the following differential diagnosis: Syncope, seizure, anemia, myocardial ischemia, arrhythmia, heart failure Patient was hemodynamically stable, afebrile, nontoxic-appearing. She had a nonfocal neuro exam. There are no meningeal signs, fever or neck stiffness to suggest meningitis, encephalitis. She had no headache prior to passing out to suggest subarachnoid hemorrhage. She additionally did not have any chest pain or shortness of breath. Symptoms of dizziness warmth prior to passing out are more suggestive of vasovagal event. In light of her recent positive tilt table test this is the likely etiology. Upon further questioning of the patient she was concerned that there may be something else causing her to pass out. The family is concerned because the patient had a prolonged period of confusion after passing out which brings up the specter of seizure however there is no seizure-like activity noted by the family. Given this diagnostic uncertainty we did obtain a CT scan of the head. Given her elevated white blood cell count we did obtain a CT scan abdomen pelvis given her vomiting and diarrhea. We will disposition the patient based on results of the studies, reassessment, vital sign reassessment and shared decision making. Prior to imaging studies patient refused a CT scan of the head and CT abdomen pelvis. She states she has similar studies placed by her specialist as an outpatient. Patient was told that not undergoing these imaging studies could potentially miss or delay a serious or life-threatening diagnosis. Patient was alert and orient x3 no capacity to make her medical decisions and chose to forego imaging at this time. Patient's blood work was unremarkable. The fact that she showed a negative prolactin makes seizure less likely. The patient will be discharged. Factors affecting care: History of vasovagal syncope Social determinants of health: Poor health literacy History obtained from others: The patient's and mother Shared decision making: I will have a discussion with the patient and or visitors regarding risk/benefits of further testing or admission. They will be made aware of of the risk/benefits inherent in this decision they will be given the opportunity to voice understanding. Consults: None Discharge Plan Triage Chief Complaint: Syncope ED Midlevel Provider: Nathalia Tiwari ED Provider: Alvarado Ibarra Dx/Rx/DC Orders Clinical Impression: Acute vomiting, Diarrhea, Syncope Instructions: Dizziness Fainting Causes Prescriptions: No Action (DME) FreeStyle Angie 2 [place] Misc See Rx Instructions .ROUTE .MEDSUPPLY Qty: 1 0RF Rx Instructions: As directed (DME) FreeStyle Angie 2 Sensor Kit See Rx Instructions .ROUTE .MEDSUPPLY Qty: 6 3RF Rx Instructions: 1 sensor q 14 days ondansetron 8 mg tablet,disintegrating 8 mg PO Q8H PRN (Reason: Nausea) Label Comments: DISSOLVE 1 TABLET UNDER TONGUE EVERY 8 HOURS A S NEEDED FOR [place] (DME) FreeStyle Angie 3 Sensor Device See Rx Instructions .Route Qty: 6 1RF Rx Instructions: 1 sensor q 14 dys midodrine 5 mg tablet 5 mg PO BID Qty: 60 6RF Rx Instructions: do not give last dose of day after 6PM or within 4 hrs of bedtime propranolol 80 MG capsule,extended release 24 hr 80 mg PO QHS atorvastatin 20 mg tablet 20 mg PO DAILY Qty: 90 3RF Mounjaro 7.5 mg/0.5 mL pen injector 7.5 mg subcut QWEEK Qty: 2 5RF metoclopramide HCl [Reglan] 5 mg tablet 5 mg PO QAC Qty: 90 3RF Rx Instructions: administer 30 minutes before meals scopolamine base 1 mg over 3 days patch 3 day 1 patch transdermal Q3D PRN (Reason: nausea and vomiting) Qty: 24 3RF Rx Instructions: May cause dryness of mouth and eyes cholestyramine-aspartame [Cholestyramine Light] 4 gram powder in packet 4 g PO BID Qty: 10 0RF Rx Instructions: administer w/meal; avoid other meds within 1hr before or 4-6hr after dose colestipol 1 gram tablet 1 g PO ONCE Qty: 60 2RF Primary Care Provider: Nancy Phipps Referrals: Nancy Phipps MD [Primary Care Provider] - Yair Stein MD [Non-Staff -Ordering Privileges] - Activity Restrictions/Additional Instructions: Today your blood work looked normal. Chest x-ray was clear. Your EKG showed normal heart rhythm. I am not sure to the cause of your symptoms but suspect is vasovagal syncope from vomiting and profuse diarrhea. I recommend following up with your specialist. Since you were concerned about possible seizure I provided the neurologist appointment and recommend you do not drive until you see them. Disposition Disposition: Home, Self Care
[2022-06-08] MEDS: 0.9% Normal Saline 1,000 ML 999 ML IV (15:41)
[2022-06-08] MEDS: Metoclopramide 10 MG/2 ML Vial IV (15:41)
--- NOTE | 2022-06-08 15:46 | EKG12_ITS ---
Test Reason : SYNCOPE Blood Pressure : / mmHG Vent. Rate : 091 BPM Atrial Rate : 091 BPM P-R Int : 180 ms QRS Dur : 096 ms QT Int : 388 ms P-R-T Axes : 040 070 043 degrees QTc Int : 477 ms Normal sinus rhythm Low voltage QRS Borderline ECG Confirmed by JAYY GABRIEL ([id number]), features editor LA[place] LYNNE ([id number]) on 06/11/2022 1:11:12 PM Referred By: Confirmed By:JAYY GABRIEL
[2022-06-08 15:50] LABS: Absolute Lymphocyte Count 1.82 X10^3/uL (0.83-4.51); Absolute Neutrophil Count 15.9 X10^3/uL (2.0-7.7); Basophil# 0.05 X10^3/uL; Basophil% 0.3 % (0-1); Eosinophil# 0.06 X10^3/uL; Eosinophils% 0.3 % (0-5); Hemoglobin 14.4 g/dL (12.0-15.0); Lymphocyte # 1.82 X10^3/ul (0.83-4.51); Lymphocyte % 9.8 % (19-41); Mean Corp Hgb Conc 32.7 g/dL (32-36); Mean Corpuscular Hgb 29.3 pg (27.0-32.0); Mean Corpuscular Volume 89.6 fL (81-99); Mean Platelet Vol. 9.6 fl (6.2-12.0); Monocyte# 0.73 X10^3/uL; Monocyte% 3.9 % (0-10); NRBC Flagged by Analyzer 0 % (0-5); Neutrophil # 15.87 X10^3/uL (2.7-7.7); Neutrophil % 85.1 % (47-70); Platelet Count 417 K/mm3 (150-450); RBC Distribution Width CV 12.5 % (11.6-14.6); Red Blood Count 4.91 M/mm3 (4.2-5.4); White Blood Count 18.6 K/mm3 (4.4-11.0)
--- NOTE | 2022-06-08 16:01 | RAD_ITS ---
STUDY: X-RAY CHEST REASON FOR EXAM: Female, 51 years old. syncope TECHNIQUE: PA and lateral views of the chest. COMPARISON: None. FINDINGS: The lungs are clear and expanded. There is no demonstrated pleural abnormality. Normal size heart. Normal mediastinum and ximena. Normal visualized pulmonary arteries. Normal visualized aortic arch and descending thoracic aorta. Normal visualized thoracic spine. Normal visualized ribs, clavicles, and shoulders. There is no demonstrated abnormality of the visualized soft tissue structures of the upper abdomen. RAD/Chest PA and Lateral IMPRESSION: Normal x-ray examination of the chest. Electronically Signed: Mandeep Palacios MD at 16:46 EDT ,
[2022-06-08 16:23] LABS: ALB/GLOB Ratio 1.1 RATIO (0.9-2.4); AST(SGOT) 32 U/L (15-37); Alanine Aminotransfer ALT/SGPT 43 U/L (13-56); Albumin, Serum 3.9 g/dL (3.2-5.0); Alkaline Phosphatase 209 U/L (45-117); Anion Gap 6 (5-15); BUN 17 mg/dL (7-18); BUN/Creat Ratio 15.3 RATIO (10-20); Calcium,Total 9.7 mg/dL (8.5-10.1); Chloride 106 mmol/L (98-107); Creatinine, Serum 1.11 mg/dL (0.55-1.02); EST Glomerular Filtration Rate 55 mL/min (>60); Est Glom Filt Rate - Afr Amer 66 mL/min (>60); Estimated Creatinine Clearance 61.21 ml/min; Globulin 3.7 g/dL (2.2-4.2); Glucose 116 mg/dL (74-106); Potassium 3.8 mmol/L (3.5-5.1); Protein, Total 7.6 g/dL (6.4-8.2); Sodium Level 138 mmol/L (136-145)
[2022-06-08 16:25] LABS: Troponin-I HS < 3 pg/mL (3.0-54.0)
[2022-06-08 16:54] LABS: Internal QC Validated? YES +Cl - CLEAR BKGD; Pregnancy, Urine Negative Negative
[2022-06-08 17:50] VITALS: BP 88/56; PULSE 88; RESP 16; O2SAT 98
== END 2022-06-08 17:52 | disposition home or self-care (01) ==
PROVIDERS: Physician Assistant; Emergency Provider Emergency Medicine; PCP Family Medicine; Visit Provider Emergency Medicine
DX: R55 Syncope and collapse (principal); E11.9 Type 2 diabetes mellitus without complications; R41.0 Disorientation, unspecified; R11.10 Vomiting, unspecified; E78.5 Hyperlipidemia, unspecified; R19.7 Diarrhea, unspecified
CPT/HCPCS: 71046; 80053; 81025; 84146; 84484; 85025; 93005; 99284; J7030; A4216

== ENCOUNTER → 2022-07-09 | Outpatient (CLI) | payer OTHER, SELFPAY ==
--- NOTE | 2022-07-09 10:59 | NM_ITS ---
CLINICAL: 52-year-old female with history of gastroparesis with abnormal semisolid phase gastric emptying study dated 04/07/2022. SOLID PHASE 99m Tc SULFUR COLLOID GASTRIC EMPTYING STUDY COMPARISON: Previous semisolid phase gastric emptying study dated 04/07/2022 FINDINGS: The patient was administered 1.1 mCi of 99m Tc sulfur colloid mixed with egg and consumed per os. Image acquisitions in the anterior-posterior projections were obtained for 227 minutes following meal consumption. There is prompt visualization of the stomach. There is no gastroesophageal reflux identified. First order kinetics are maintained throughout the duration of the acquisitions. The T ? raw data emptying was calculated to be 132.8 minutes, (Normal 65-110 minutes). 88 % emptying and 12 % retention are defined at 4 hours post meal ingestion. The patient demonstrated severe gastroparesis on the semisolid phase gastric emptying study dated 04/07/2022. NM/Gastric Emptying Study IMPRESSION: 1. ABNORMAL 99m Tc sulfur colloid solid phase gastric emptying imaging examination. A. There is abnormal solid phase gastric emptying compared to normal controls with maintained first order kinetics throughout all components of the examination. (Lavell et al, Gastroenterology 77: 75, 1979 Werner et al, Semin Nucl Med 12: 116, 1981 Donavan et al, SNM Procedure Guidelines Adult Solid Meal Gastric Emptying Study 3.0 [email or web address]). B. Greater than 10% retention of the initial gastric contents at 4 hours post dose is consistent with abnormal solid phase gastric emptying which correlates with the results of the T ? emptying calculation. (Alan et al, J Nucl Med 48: 568, 2007). C. Compared to the semisolid phase gastric emptying study dated 04/07/2022, there is apparent marked interim improvement. Electronically Signed: Mandeep Banks, at 21:56 EDT ,
== END | disposition home or self-care (01) ==
LOC: NM 10:10
PROVIDERS: PCP Family Medicine; Referring Provider Internal Medicine Gastroenterology; Visit Provider Internal Medicine Gastroenterology
DX: R19.7 Diarrhea, unspecified (principal); K31.84 Gastroparesis
CPT/HCPCS: 78264; A9541

== ENCOUNTER → 2022-08-21 | Outpatient (CLI) | payer OTHER, SELFPAY | END | disposition home or self-care (01) | PROVIDERS: PCP Family Medicine; Referring Provider Registered Nurse; Visit Provider Registered Nurse | DX: R87.9 Unspecified abnormal finding in specimens from female genital organs (principal) | CPT/HCPCS: 87070; 87205 ==

== ENCOUNTER → 2022-09-03 | Outpatient (CLI) | payer OTHER, SELFPAY ==
--- NOTE | 2022-09-03 11:52 | BI_ITS ---
MAMMOGRAPHY - BILATERAL SCREENING REASON FOR EXAM: Female, 52 years old. Routine annual screening examination. PERTINENT HISTORY: Grandmother with breast cancer. Remote right stereotactic breast biopsy. Prior left breast biopsy. TECHNIQUE: Digital bilateral breast manny (3D mammographic acquisition) in the CC and MLO projections. 2-D mediolateral oblique (MLO) and craniocaudad (CC) views of both breasts were obtained. CAD: Full Field Digital Mammography with Computer Added Detection was performed. COMPARISON: Comparison is made with prior examination dated October 05, 2020 and September 30, 2013. FINDINGS: Breast Composition: The breasts are heterogeneously dense, which may obscure small masses. Stable scattered microcalcifications are seen in the retroareolar regions of both breasts more prominent on the left side. 2 tissue markers are seen in the retroareolar region of the left breast as well as a tissue clip marker is seen in the deep slightly inferior lateral aspect of the left breast. A tissue clip marker is also seen in the deep upper lateral aspect of the right breast. Stable appearance of the small bilateral axillary lymph nodes. No other significant abnormalities are identified. There has been no significant change since the prior study. BI/SCRN MAMM (CAD)W/MANNY BILAT IMPRESSION: Stable bilateral screening mammogram. Yearly follow-up mammogram recommended. (A) ASSESSMENT CATEGORY: BIRADS Category 2: Benign. A letter regarding these results will be sent to the patient by the facility within 30 days. Approximately 10% of breast cancers are not detected by mammography. A normal mammogram should not delay biopsy of a clinically suspicious abnormality. [id number] Electronically Signed: Rowdy Dill MD at 14:37 EDT ,
== END | disposition home or self-care (01) ==
LOC: OPBI 11:51
PROVIDERS: PCP Family Medicine; Referring Provider Registered Nurse; Visit Provider Registered Nurse
DX: Z12.31 Encounter for screening mammogram for malignant neoplasm of breast (principal); Z80.3 Family history of malignant neoplasm of breast
CPT/HCPCS: 77063; 77067

== ENCOUNTER → 2022-10-30 | Outpatient (CLI) | payer OTHER, SELFPAY ==
[2022-10-30 16:03] LABS: AST(SGOT) 52 U/L (15-37); Alanine Aminotransfer ALT/SGPT 105 U/L (13-56); Albumin, Serum 3.9 g/dL (3.2-5.0); Alkaline Phosphatase 206 U/L (45-117); Anion Gap 7 (5-15); BUN 16 mg/dL (7-18); BUN/Creat Ratio 21.8 RATIO (10-20); Calcium,Total 9.3 mg/dL (8.5-10.1); Chloride 105 mmol/L (98-107); Creatinine, Serum 0.73 mg/dL (0.55-1.02); EST Glomerular Filtration Rate 88 mL/min (>60); Est Glom Filt Rate - Afr Amer 106 mL/min (>60); Globulin 3.8 g/dL (2.2-4.2); Glucose 101 mg/dL (74-106); Potassium 3.7 mmol/L (3.5-5.1); Protein, Total 7.7 g/dL (6.4-8.2); Sodium Level 140 mmol/L (136-145)
== END | disposition home or self-care (01) ==
PROVIDERS: PCP Family Medicine; Referring Provider Nurse Practitioner Family; Visit Provider Nurse Practitioner Family
DX: R55 Syncope and collapse (principal); E11.9 Type 2 diabetes mellitus without complications
CPT/HCPCS: 36415; 80053; 82533

== ENCOUNTER → 2022-11-04 | Outpatient (CLI) | payer OTHER, SELFPAY ==
[2022-11-04 17:44] LABS: Prothrombin Time (Protime)PT. 12.8 SECONDS (11.7-14.9)
[2022-11-04 18:02] LABS: ALB/GLOB Ratio 1.1 RATIO (0.9-2.4); AST(SGOT) 17 U/L (15-37); Alanine Aminotransfer ALT/SGPT 51 U/L (13-56); Albumin, Serum 3.6 g/dL (3.2-5.0); Alkaline Phosphatase 173 U/L (45-117); Anion Gap 4 (5-15); BUN 17 mg/dL (7-18); BUN/Creat Ratio 24.1 RATIO (10-20); CPK Total, Creatine Kinase 54 U/L (26-192); Chloride 106 mmol/L (98-107); EST Glomerular Filtration Rate 92 mL/min (>60); Est Glom Filt Rate - Afr Amer 112 mL/min (>60); Globulin 3.4 g/dL (2.2-4.2); Glucose 107 mg/dL (74-106); LDH 118 U/L (84-246); Lactic Acid 0.8 mmol/L (0.4-1.9); Potassium 3.6 mmol/L (3.5-5.1); Sodium Level 140 mmol/L (136-145)
== END | disposition home or self-care (01) ==
LOC: LAB 16:53
PROVIDERS: PCP Family Medicine; Referring Provider Internal Medicine Gastroenterology; Visit Provider Internal Medicine Gastroenterology
DX: R79.89 Other specified abnormal findings of blood chemistry (principal); R19.7 Diarrhea, unspecified; R10.9 Unspecified abdominal pain
CPT/HCPCS: 80053; 82550; 83605; 83615; 85610

== ENCOUNTER → 2022-12-26 | Outpatient (CLI) | payer OTHER, SELFPAY ==
--- NOTE | 2022-12-26 08:40 | MRI_ITS ---
EXAM: MR ABDOMEN WITHOUT INTRAVENOUS CONTRAST, MRCP PROTOCOL CLINICAL INDICATION: abd pain, elevated liver function tests TECHNIQUE: Multiplanar and multisequence MR images of the abdomen without intravenous contrast obtained with MRCP sequence. Three-dimensional post-processing reconstructions were performed. COMPARISON: No relevant prior studies available. FINDINGS: LOWER THORAX: Normal. No pleural effusion. LIVER: Normal. Normal morphology. GALLBLADDER AND BILE DUCTS: 4 cm long cystic duct remnant. No dilatation of the biliary tree. Gallbladder is absent. No choledochal filling defect. PANCREAS: Normal. No focal cystic mass. No pancreatic duct dilation. SPLEEN: Normal. Non-enlarged. ADRENALS: Normal. No nodules. KIDNEYS AND URETERS: Normal. Normal renal size and position. No hydronephrosis. INTRAPERITONEAL SPACE: Normal. No ascites or other fluid collection. VASCULATURE: Normal. Abdominal aorta is non-dilated. LYMPH NODES: No enlarged lymph nodes. MRI/MRCP Abdomen without Contrast IMPRESSION: 1. No dilatation of the biliary tree. 2. Normal-appearing liver. Electronically Signed: Raf Moore MD at 9:48 EDT ,
--- NOTE | 2022-12-26 09:55 | RAD_ITS ---
EXAM: XR ABDOMEN, 1 VIEW CLINICAL INDICATION: ABD PAIN TECHNIQUE: Frontal supine view of the abdomen/pelvis. COMPARISON: No relevant prior studies available. FINDINGS: GASTROINTESTINAL TRACT: Normal bowel gas pattern. ORGANS: 3 mm calcification projecting over the lower pole left kidney consistent with renal stone. BONES/JOINTS: No acute abnormality. RAD/Abdomen Single View IMPRESSION: Left nephrolithiasis. No evidence of bowel obstruction or significant ileus. Electronically Signed: Raf Moore MD at 10:15 EDT ,
== END | disposition home or self-care (01) ==
LOC: MRI 09:46 → RAD 09:47 → MRI 09:50
PROVIDERS: PCP Family Medicine; Referring Provider Internal Medicine Gastroenterology
DX: R10.84 Generalized abdominal pain (principal); K58.1 Irritable bowel syndrome with constipation
CPT/HCPCS: 74018; 74181

== ENCOUNTER → 2024-05-04 | Outpatient (CLI) | payer OTHER, SELFPAY ==
--- NOTE | 2024-05-04 12:30 | BI_ITS ---
PROCEDURE: SCRN MAMM (CAD)W/MANNY BILAT REASON FOR EXAM: F, Age 53 y/o , SCREENING. Grandmother with breast cancer. TECHNIQUE: Bilateral screening digital breast tomosynthesis with 2D and 3D images. Computer aided detection. COMPARISON: Prior exam(s) dating back to September 03, 2022.. FINDINGS: The breasts are heterogeneously dense which may obscure small masses. Stable small bilateral axillary lymph nodes. Stable appearance of the tissue clip marker is in the retroareolar region of the left breast as well as in the midportion of the left breast in the upper-outer aspect of the right breast. No suspicious masses, areas of developing architectural distortion, or suspicious calcifications. BI/SCRN MAMM (CAD)W/MANNY BILAT IMPRESSION: BI-RADS 2: BENIGN. RECOMMEND ANNUAL MAMMOGRAPHIC SCREENING. Follow-up code: Routine Follow-up The patient will be notified of the results by letter. Reading Location: [place] [id number]
== END | disposition home or self-care (01) ==
LOC: OPBI 12:23
PROVIDERS: PCP Family Medicine; Referring Provider Advanced Practice Midwife; Visit Provider Advanced Practice Midwife
DX: Z12.31 Encounter for screening mammogram for malignant neoplasm of breast (principal)
CPT/HCPCS: 77063; 77067

== ENCOUNTER → 2025-01-10 | Outpatient (CLI) | payer OTHER, SELFPAY | END | disposition home or self-care (01) | LOC: LABSPEC 16:08 | PROVIDERS: Referring Provider Physician Assistant; Visit Provider Physician Assistant | DX: R39.9 Unspecified symptoms and signs involving the genitourinary system (principal) | CPT/HCPCS: 87077; 87086; 87088; 87186 ==

== ENCOUNTER → 2025-02-08 | Outpatient (CLI) | payer OTHER, SELFPAY ==
[2025-02-08 10:36] LABS: Hematocrit 38.5 % (37-47); Hemoglobin 12.3 g/dL (12.0-15.0); Immature Granulocytes Count 0.040 X10^3/uL (0.0-0.0); Mean Corp Hgb Conc 31.9 g/dL (32-36); Mean Corpuscular Volume 92.1 fL (81-99); Mean Platelet Vol. 10.0 fl (6.2-12.0); NRBC Flagged by Analyzer 0 % (0-5); Platelet Count 342 K/mm3 (150-450); RBC Distribution Width CV 12.9 % (11.6-14.6); RBC Distribution Width SD 43.0 fl (35.1-43.9); Red Blood Count 4.18 M/mm3 (4.2-5.4); White Blood Count 7.6 K/mm3 (4.4-11.0)
[2025-02-08 11:11] LABS: Creatinine, Urine (random) 168.00 mg/dL (28.00-217.00); Microalbumin,Random Urine 16.7 mg/L (<20 mg/L)
[2025-02-08 11:44] LABS: Cholesterol 200 mg/dL (<=200); Low Density Lipoprotein Calc. 124 mg/dL; Triglycerides 262 mg/dL; Very Low Density Lipoprotein 52 mg/dL (5-40); Vitamin D,25 Hydroxy 36.4 ng/mL (30-100); cholesterol:hdl ratio screen 6.83
[2025-02-08 11:45] LABS: AST(SGOT) 43 U/L (<=31); Alanine Aminotransfer ALT/SGPT 42 U/L (<=34); Albumin, Serum 4.5 g/dL (3.5-5.0); Alkaline Phosphatase 85 U/L (35-104); Anion Gap 12 (5-15); BUN 22 mg/dL (4-19); BUN/Creat Ratio 24.0 RATIO (10-20); Calcium,Total 9.9 mg/dL (7.6-11.0); Carbon Dioxide 23.9 mmol/L (21.0-32.0); Chloride 104 mmol/L (98-108); Globulin 2.9 g/dL (2.2-4.2); Glucose 130 mg/dL (70-99); Potassium 4.4 mmol/L (3.3-5.1)
== END | disposition home or self-care (01) ==
LOC: LAB 09:31
PROVIDERS: Visit Provider Nurse Practitioner Family
DX: E11.65 Type 2 diabetes mellitus with hyperglycemia (principal)
CPT/HCPCS: 36415; 80053; 80061; 82043; 82306; 82570; 84443; 85025